=== PATIENT | male | born 1980 | race Hispanic/Latino ===

== ENCOUNTER 2017-08-17 17:52 | Emergency (ER) | payer BC, OTHER ==
[~2017-08-17] VITALS: Ht 188 cm; Wt 108.9 kg
[~2017-08-17 17:52] MED LIST: MOTRIN200 MG PO
--- OUTSIDE RECORDS SUMMARY | 2017-08-17 17:55 | XMS REPORT ---
Author Author [facility] Address Unknown Phone Unavailable Care Team Providers Care Physical Science Technician Name Role Phone ANNABELLE REJI Unavailable Unavailable Problems This patient has no known problems. Allergies, Adverse Reactions, Alerts This patient has no known allergies or adverse reactions. Medications This patient has no known medications. Results Test Description Test Time Test Comments Text Results Atomic Results Result Comments TISSUE EXAM 2017-04-28 13:26:00 Surgical Pathology Report Case: [id number] Authorizing Provider: Reji Ridley Collected: 04/21/2017 1608 Ordering Location: [facility] Day Surgery Received: 2017 1608 Pathologist: Luna Nunes MD Specimen: Biopsy, Liver, TRANSJUGULAR LIVER BIOPSY WITH PRESSURE MEASURMENTS LIVER, TRANSJUGULAR NEEDLE BIOPSIES- LIVER PARENCHYMA WITH NO SIGNIFICANT DIAGNOSTIC ALTERATIONS- SEE COMMENT Signing Pathologist Direct Phone Line: The liver biopsy shows minimal steatosis, involving about 1% of liver parenchyma, and there is mild perisinusoidal fibrosis. There is no significant portal fibrosis. [id number], [id number] splenomegalyTransjugular liver biopsyThe specimen is received in a formalin-filled container and labeled with the patient 's name and medical record number labeled "transjugular liver biopsy and consists of multiple espinoza-brown core biopsy ranging from 0.3 to 1.5 cm, submitted entirely A1. CG/pl Section shows multiple variably sized cores of liver parenchyma with greater than 10 portal tracts and is adequate for evaluation. The portal tracts are unremarkable with preserved bile ducts. No significant portal inflammation is noted. There is minimal focal steatosis involving 1% of liver parenchyma. No ballooning degeneration is seen. There is rare focal lobular inflammation with occasional acidophilic body. Iron stain shows rare focal 1+ staining in the hepatocytes. No hyaline globules are seen on PAS with diastase stain.Trichrome stain shows mild perisinusoidal fibrosis. No significant portal fibrosis is seen. Reticulin stain shows 1-2 cell thick hepatocyte trabeculae. Special stains: trichrome, reticulin, iron and PAS with diastase FLEX TRANSCATHETER BIOPSY 2017-04-21 17:17:00 Specify Organ:->unexplained splenomegalyReason for Exam:->other specified abnormal findings of blood chemistry FINAL REPORT HISTORY: Elevated liver function tests, splenomegaly PROCEDURE: Following informed written consent, the patient's right cervical region was prepped and draped in the usual sterile manner. 2% lidocaine was given locally for anesthesia. Additionally, the patient received 3 mg IV Versed and 150 mcg IV fentanyl in incremental doses for conscious sedation and pain control. Vital signs were monitored and remained stable. Conscious sedation and continuous patient monitoring were performed by the attending radiologist and a registered nurse for approximately 30 minutes during the procedure. Access was gained to the right internal jugular vein using ultrasound guidance a micropuncture needle. A Ricks wire was advanced through the micropuncture sheath and into the inferior vena cava. A 9 Austrian sheath was placed. The purpose catheter and wire were used to carefully select to perform a hepatic venogram. Biopsy sheath was advanced over the catheter and wire into the middle hepatic vein. A total of for 19-gauge core tissue samples were obtained from the hepatic parenchyma adjacent to the hepatic vein. Samples were submitted in formalin for pathologic evaluation. Repeat venography was performed following the biopsy. Catheter and sheath were then removed and hemostasis achieved without immediate complications. Patient was discharged from the department in stable condition. FINDINGS: Single sonographic image of the right jugular vein prior to the procedure demonstrates patent jugular vein. Normal compressibility of this vessel is seen without visible thrombus. Ultrasound image of the right internal jugular vein was obtained and archived on PACs. Hepatic venogram shows patent hepatic veins without venous anomalies. During the biopsy, the biopsy needle is noted in the hepatic parenchyma adjacent to the middle hepatic vein. Following the biopsy, repeat venography shows no evidence for contrast extravasation or hemorrhage. Hepatic Venous Pressures as follows: Wedged hepatic pressure: 14 mmHgHepatic venous pressure: 9 mmHgRight atrial pressure: 0 mmHg IMPRESSION: 1. Successful uncomplicated transjugular liver biopsy. A total of for 19-gauge core tissue samples were obtained via the middle hepatic vein. Hepatic venous pressures, as detailed above Fluoroscopy time: 3.3 minsEstimated dose reported as (Ka,r): 85 mGy Signed: Jeanette Berumen MDReport Verified Date/Time: 04/21/2017 17:17:33 Reading Location: [place] [id number] Angio Body Reading Room REHENSIVE METABOLIC PANEL 2017-04-21 07:25:00 TOTAL PROTEIN (BEAKER) (test jixz=886) 7.5 gm/dL 6.0-8.3 ALBUMIN (BEAKER) (test jqnv=0549) 4.3 g/dL 3.5-5.0 ALKALINE PHOSPHATASE (BEAKER) (test unls=655) 114 U/L 40-150 BILIRUBIN TOTAL (BEAKER) (test knvd=266) 0.5 mg/dL 0.2-1.2 SODIUM (BEAKER) (test nihv=218) 139 meq/L 136-145 POTASSIUM (BEAKER) (test ioca=628) 4.1 meq/L 3.5-5.1 CHLORIDE (BEAKER) (test xwrq=717) 107 meq/L 98-107 CO2 (BEAKER) (test ynmx=004) 24 meq/L 22-29 BLOOD UREA NITROGEN (BEAKER) (test zgvf=406) 11 mg/dL 7-21 CREATININE (BEAKER) (test qjpp=574) 1.00 mg/dL 0.57-1.25 GLUCOSE RANDOM (BEAKER) (test iuxm=470) 101 mg/dL 70-105 CALCIUM (BEAKER) (test fuqx=938) 9.2 mg/dL 8.4-10.2 AST (SGOT) (BEAKER) (test zewc=167) 35 U/L 5-34 ALT (SGPT) (BEAKER) (test kfey=515) 60 U/L 6-55 EGFR (BEAKER) (test bijh=6354) 85 mL/min/1.73 sq m ESTIMATED GFR IS NOT ACCURATE CREATININE CLEARANCE IN PREDICTING GLOMERULAR FILTRATION RATE. ESTIMATED GFR IS NOT APPLICABLE FOR DIALYSIS PATIENTS. [id number] 07:14:00* Test Item Value Reference Range Comments PROTIME (BEAKER) (test oute=943) 13.8 seconds 11.7-14.7 INR (BEAKER) (test mogd=377) 1.1 <=5.9 PARTIAL THROMBOPLASTIN TIME (BEAKER) (test kdoh=708) 31.1 seconds 22.5-36.0 RECOMMENDED COUMADIN/WARFARIN INR THERAPY RANGESSTANDARD DOSE: 2.0 - 3.0 Includes: PROPHYLAXIS for venous thrombosis, systemic embolization; TREATMENT for venous thrombosis and/or pulmonary embolus.HIGH RISK: Target INR is 2.5-3.5 for patients with mechanical heart valves.PLATELET [id number] 07:09:00* Test Item Value Reference Range Comments PLATELET COUNT (ANGELAAKER) (test jjpm=063) 143 K/CU MM 150-450
--- OUTSIDE RECORDS SUMMARY | 2017-08-17 17:55 | XMS REPORT | Clinical Summary ---
Author [facility] Address Unknown Phone Unavailable Care Team Providers Care Drive In Teller Name Role Phone PCP Unavailable Allergies No Known Allergies Current Medications No known medications Active Problems Not on file Encounters Date Type Specialty Care Team Description 04/21/2017 Orders Only General Surgery History of liver biopsy (Primary Dx) 04/21/2017 [facility] Inderjit Ridley Splenomegaly;Other Encounter specified abnormal findings of blood chemistry 04/21/2017 Ancillary Lab Inderjit Ridley Orders 04/15/2017 Outside Orders Central Scheduling Inderjit Ridley Splenomegaly (Primary Dx);Other specified abnormal findings of blood chemistry 04/14/2017 Outside Orders Central Scheduling Inderjit Ridley after 08/16/2016 Social History Tobacco Use Types Packs/Day Years Used Date Light Tobacco Smoker 0.25 Smokeless Tobacco: Current User Tobacco Cessation: Ready to Quit: Yes; Counseling Given: Yes Alcohol Use Drinks/Week oz/Week Comments No Sex Assigned at Date Recorded Not on file Last Filed Vital Signs Vital Sign Reading Time Taken Blood Pressure 119/64 04/21/2017 5:40 PM POLICE SUPERINTENDENT Pulse 58 04/21/2017 5:40 PM POLICE SUPERINTENDENT Temperature 37.2 C (98.9 F) 04/21/2017 9:09 AM POLICE SUPERINTENDENT Respiratory Rate 18 04/21/2017 5:40 PM POLICE SUPERINTENDENT Oxygen Saturation 98% 04/21/2017 1:54 PM POLICE SUPERINTENDENT Inhaled Oxygen - - Concentration Weight 113.9 kg (251 lb) 04/21/2017 6:36 AM POLICE SUPERINTENDENT Height 188 cm (6' 2") 04/21/2017 6:36 AM POLICE SUPERINTENDENT Body Mass Index 32.23 04/21/2017 6:36 AM POLICE SUPERINTENDENT Plan of Treatment Not on file Results * Tissue Exam (04/21/2017 4:08 PM) Component Value Ref Range Case Report Surgical Pathology Report Case: [id number] Authorizing Provider: Inderjit Ridley Collected: 04/21/2017 1608 Ordering Location: [facility] Day Surgery Received: 04/21/2017 1608 Pathologist: Luna Nunes MD Specimen: Biopsy, Liver, TRANSJUGULAR LIVER BIOPSY WITH PRESSURE MEASURMENTS DIAGNOSIS LIVER, TRANSJUGULAR NEEDLE BIOPSIES - LIVER PARENCHYMA WITH NO SIGNIFICANT DIAGNOSTIC ALTERATIONS - SEE COMMENT Signing Pathologist Direct Phone Line: [phone] COMMENT The liver biopsy shows minimal steatosis, involving about 1% of liver parenchyma, and there is mild perisinusoidal fibrosis. There is no significant portal fibrosis. CPT Code(s) 26144, 56477 X4 CLINICAL HISTORY Unexplained splenomegaly SPECIMEN SOURCE Transjugular liver biopsy GROSS DESCRIPTION The specimen is received in a formalin-filled container and labeled with the patient's name and medical record number labeled "transjugular liver biopsy and consists of multiple espinoza-brown core biopsy ranging from 0.3 to 1.5 cm, submitted entirely A1. CG/pl MICROSCOPIC DESCRIPTION Section shows multiple variably sized cores of [...] trichrome, reticulin, iron and PAS with diastase Specimen Performing Laboratory Tissue - Biopsy, [place] [address] * IR Transcatheter Biospy of Kidney/Liver (04/21/2017 1:15 PM) Specimen Performing Laboratory GE RIS Narrative FINAL REPORT HISTORY: Elevated liver function tests, [...] into the inferior vena cava. A 9 Malian sheath was placed. The purpose catheter and [...] Pressures as follows: Wedged hepatic pressure: 14 mmHg Hepatic venous pressure: 9 mmHg Right atrial pressure: 0 mmHg IMPRESSION: 1. Successful uncomplicated transjugular liver biopsy. A total of for 19-gauge core tissue samples were obtained via the middle hepatic vein. Hepatic venous pressures, as detailed above Fluoroscopy time: 3.3 mins Estimated dose reported as (Ka,r): 85 mGy Signed: Jeanette Berumen MD Report Verified Date/Time:04/21/2017 17:17:33 Reading Location: [place] [address] Angio Body Reading Room Procedure Note Interface, External Ris In - 04/30/2017 10:32 PM POLICE SUPERINTENDENT FINAL REPORT HISTORY: Elevated liver function tests, [...] into the inferior vena cava. A 9 Malian sheath was placed. The purpose catheter and [...] Pressures as follows: Wedged hepatic pressure: 14 mmHg Hepatic venous pressure: 9 mmHg Right atrial pressure: 0 mmHg IMPRESSION: 1. Successful uncomplicated transjugular liver biopsy. A total of for 19-gauge core tissue samples were obtained via the middle hepatic vein. Hepatic venous pressures, as detailed above Fluoroscopy time: 3.3 mins Estimated dose reported as (Ka,r): 85 mGy Signed: Jeanette Berumen MD Report Verified Date/Time: 04/21/2017 17:17:33 Reading Location: [place] [address] Angio Body Reading Room * PT/aPTT (04/21/2017 6:54 AM) Component Value Ref Range Protime 13.8 11.7 - 14.7 seconds INR 1.1 <=5.9 PTT 31.1 22.5 - 36.0 seconds Specimen Performing Laboratory Blood [facility] [address] [address] Narrative RECOMMENDED COUMADIN/WARFARIN INR THERAPY RANGES STANDARD DOSE: 2.0 - 3.0 Includes: PROPHYLAXIS for venous thrombosis, systemic embolization; TREATMENT for venous thrombosis and/or pulmonary embolus. HIGH RISK: Target INR is 2.5-3.5 for patients with mechanical heart valves. * Platelet count (04/21/2017 6:54 AM) Component Value Ref Range Platelets 143 (L) 150 - 450 K/CU MM Specimen Performing Laboratory Blood [address] [address] * Comprehensive metabolic panel (04/21/2017 6:54 AM) Component Value Ref Range Protein, Total 7.5 6.0 - 8.3 gm/dL Albumin 4.3 3.5 - 5.0 g/dL Alkaline Phosphatase 114 40 - 150 U/L Total Bilirubin 0.5 0.2 - 1.2 mg/dL Sodium 139 136 - 145 meq/L Potassium 4.1 3.5 - 5.1 meq/L Chloride 107 98 - 107 meq/L CO2 24 22 - 29 meq/L BUN 11 7 - 21 mg/dL Creatinine 1.00 0.57 - 1.25 mg/dL Glucose 101 70 - 105 mg/dL Calcium 9.2 8.4 - 10.2 mg/dL AST 35 (H) 5 - 34 U/L ALT 60 (H) 6 - 55 U/L EGFR 85Comment: ESTIMATED GFR IS NOT ACCURATE mL/min/1.73 sq m CREATININE CLEARANCE IN PREDICTING GLOMERULAR FILTRATION RATE. ESTIMATED GFR IS NOT APPLICABLE FOR DIALYSIS PATIENTS. Specimen Performing Laboratory Blood [address] [address] after 08/16/2016
[2017-08-17] MEDS ORDERED: MORPHINE SULFATE 4 MG/ML SYR IV PRN (19:45)
[2017-08-17 20:21] VITALS: BP 136/76
== END 2017-08-17 20:25 | disposition home or self-care (01) ==
LOC: FSED 17:52
DX: R10.12 Left upper quadrant pain (principal)
CPT/HCPCS: 74177; 80053; 81003; 85025; 85610; 99284

== ENCOUNTER 2018-07-30 23:39 | Emergency (ER) | payer OTHER ==
[~2018-07-30] VITALS: Ht 190.5 cm; Wt 108.9 kg
--- OUTSIDE RECORDS SUMMARY | 2018-07-30 23:45 | XMS REPORT | Clinical Summary ---
Author Author [facility] Organization [facility] Address Unknown Phone Unavailable Care Team Providers Care Extractor Machine Operator Name Role Phone Drake Pastrana MD PCP Allergies No Known Allergies Medications No known medications Active Problems Not on file Social History Date Tobacco Use Types Packs/Day Years Used Light Tobacco Smoker 0.25 Smokeless Tobacco: Current User Tobacco Cessation: Ready to Quit: Yes; Counseling Given: Yes Alcohol Use Drinks/Week oz/Week Comments No Sex Assigned at Date Recorded Not on file Industry Job Start Date Occupation Not on file Not on file Not on file Travel End Travel History Travel Start No recent travel history available. Last Filed Vital Signs Not on file Plan of Treatment Not on file Results Not on fileafter 07/29/2017 Insurance Payer Benefit Subscriber ID Type Phone Address Plan / Group [employer] - MGD CARE CIG[employer] xxxxxxxxxxx HMO/POS HMO/POS/OP EN ACCESS Advance Directives For more information, please contact: [facility] [address] [place] [address] Date Inactivated Comments Code Status Date Activated 04/21/2017 10:05 PM Full Code 04/21/2017 1:51 PM This code status was determined by: Patient
--- OUTSIDE RECORDS SUMMARY | 2018-07-30 23:45 | XMS REPORT | Continuity of Care Document ---
Author Author [facility] Interface Address Unknown Phone Unavailable Problems Problem Status Onset Date Classification Date Reported Comments Source INCARCERATED HERNIA Active 11/01/2015 [facility] EARLY SBO Active 11/01/2015 [facility] ABD PAIN; HERNIA Active 12/27/2013 [facility] Pain Active Problem 11/06/2015 [facility] Surgery Active Problem 11/06/2015 [facility] Urinary retention Active Problem 11/06/2015 [facility] Ventral hernia Active Problem 11/06/2015 [facility] History of abdominal hernia Resolved Problem 11/06/2015 [facility] BI INGUINAL HERNIA, W OBST, W/O GANGRENE Active [facility] Medications Medication Details Route Status Patient Instructions Ordering Provider Order Date Source Acetaminophen 325 MG / Hydrocodone Bitartrate 5 MG Oral Tablet [[place] 5/325] See Instructions, take 1-2 tabls every 4 to 6 hours as needed for pain, # 30 tab, 0 Refill(s) Active 11/03/2015 [facility] Acetaminophen 325 MG / Hydrocodone Bitartrate 5 MG Oral Tablet [[place] 5/325] 1 tab, Route: PO, Drug Form: TAB, Dosing Weight 116.818, kg, Q6H, PRN Pain Score 7-10, Start date: 11/03/15 13:45:00 CDT, Duration: 30 day, Stop date: 12/03/15 13:44:00 CDTNotes: (Same as: [place] 325/5) Do not exceed 4gm/day of acetaminophen. Inactive 11/03/2015 [facility] Flomax 0.4 mg, 1 cap, Route: PO, Drug form: CAP, After Dinner, Dosing Weight 116.818, kg, Start date: 11/02/15 17:00:00 CDT, Duration: 30 day, Stop date: 12/01/15 17:00:00 CDTNotes: (Same As: Flomax) "Do Not Crush" No Longer Active 11/02/2015 [facility] pneumococcal capsular polysaccharide type 1 vaccine / pneumococcal capsular polysaccharide type 10A vaccine / pneumococcal capsular polysaccharide type 11A vaccine / pneumococcal capsular polysaccharide type 12F vaccine / pneumococcal capsular polysacchar 0.5 mL, Route: IM, Drug Form: INJ, Daily, Start date: 11/02/15 9:00:00 CDT, Duration: 1 doses or times, Stop date: 11/02/15 9:00:00 CDTNotes: (Same as: Pneumovax 23) Refrigerate Inactive 11/02/2015 [facility] ceFAZolin (SCIP) + sodium chloride 0.9% INJ 100 mL 1 gm, Route: IVPB, Q8H, Dosing Weight 116.818, kg, Start date: 11/02/15 0:00:00 CDT, Duration: 1 doses or times, Stop date: 11/02/15 0:00:00 CDTNotes: (Same As: David Gloria) MEDICATION WASTE Product Size: 1000 mg Product Wasted: ___ mg Inactive 11/02/2015 [facility] Famotidine 20 mg, 1 tab, Route: PO, Drug form: TAB, Q12H, Dosing Weight 116.818, kg, Start date: 11/01/15 21:00:00 CDT, Duration: 30 day, Stop date: 12/01/15 9:00:00 CDTNotes: (Same as: Pepcid) No Longer Active 11/02/2015 [facility] Ofirmev 1,000 mg, 100 mL, Route: IV, Drug form: INJ, Q6H, Dosing Weight 116.818, kg, for > or=50 kg, Start date: 11/01/15 18:00:00 CDT, Duration: 1 day, Stop date: 11/02/15 12:00:00 CDTNotes: Infuse over 15 minutes Do not exceed 4gm/day of acetaminophen MEDICATION WASTE Product Size: 1000 mg Product Wasted: ___ mg No Longer Active 11/01/2015 [facility] Ondansetron 4 mg, Route: IVP, ONCE, Dosing Weight 116.818, kg, PRN Nausea & Vomiting, Start date: 11/01/15 17:41:00 CDT Inactive 11/01/2015 [facility] Acetaminophen 1,000 mg, Route: PO, Drug form: TAB, ONCE, Dosing Weight 116.818, kg, PRN Pain Score 1-3, Start date: 11/01/15 17:41:00 CDT, Duration: 1 doses or times, Stop date: Limited # of times Inactive 11/01/2015 [facility] Flumazenil 0.2 mg, Route: IVP, PRN, Dosing Weight 116.818, kg, PRN Benzodiazepine Reversal, Initial dose, Start date: 11/01/15 17:41:00 CDT, Duration: 30 day, Stop date: 12/01/15 17:40:00 CDT Inactive 11/01/2015 [facility] Naloxone 0.4 mg, Route: IVP, Q2MIN, Dosing Weight 116.818, kg, PRN Narcotic Reversal, Start date: 11/01/15 17:41:00 CDT, Duration: 8 doses or times, Stop date: Limited # of times Inactive 11/01/2015 [facility] Fentanyl 50 microgram, Route: IVP, Q5Min, Dosing Weight 116.818, kg, PRN Pain Score 7-10, Start date: 11/01/15 17:41:00 CDT, Duration: 2 doses or times, Stop date: Limited # of times Inactive 11/01/2015 [facility] Hydromorphone 0.5 mg, Route: IVP, Q5Min, Dosing Weight 116.818, kg, PRN Pain Score 7-10, Start date: 11/01/15 17:41:00 CDT, Duration: 4 doses or times, Stop date: Limited # of times Inactive 11/01/2015 [facility] Oxycodone 10 mg, Route: PO, Drug form: TAB, Q4H, Dosing Weight 116.818, kg, PRN Pain Score 7-10, Start date: 11/01/15 17:41:00 CDT, Duration: 30 day, Stop date: 12/01/15 17:40:00 CDT Inactive 11/01/2015 [facility] Meperidine 12.5 mg, Route: IVP, Q30Min, Dosing Weight 116.818, kg, PRN Other -See Comment, For shivering, Start date: 11/01/15 17:41:00 CDT, Duration: 2 doses or times, Stop date: Limited # of times Inactive 11/01/2015 [facility] hydromorphone (ANES) Route: IV, Drug form: INJ, ONCE, Stop date: 11/01/15 17:27:00 CDT Inactive 11/01/2015 [facility] neostigmine (ANES) Route: IV, Drug form: INJ, ONCE, Stop date: 11/01/15 17:27:00 CDT Inactive 11/01/2015 [facility] glycopyrrolate (ANES) Route: IV, Drug form: INJ, ONCE, Stop date: 11/01/15 17:27:00 CDT Inactive 11/01/2015 [facility] Ondansetron 4 mg, 2 mL, Route: IVP, Drug form: INJ, Q6H, Dosing Weight 116.818, kg, PRN Nausea & Vomiting, Start date: 11/01/15 17:25:00 CDT, Duration: 30 day, Stop date: 12/01/15 17:24:00 CDTNotes: (Same as: Zofran) MEDICATION WASTE Product Size: 4 mg Product Wasted: ___ mg No Longer Active 11/01/2015 [facility] Morphine 2 mg, 1 mL, Route: IVP, Drug form: INJ, Q3H, Dosing Weight 116.818, kg, PRN Pain Score 4-6, Start date: 11/01/15 17:25:00 CDT, Duration: 30 day, Stop date: 12/01/15 17:24:00 CDTNotes: (Same as:MORPhine Sulfate) No Longer Active 11/01/2015 [facility] Acetaminophen 325 MG / Hydrocodone Bitartrate 5 MG Oral Tablet 1 tab, Route: PO, Drug Form: TAB, Dosing Weight 116.818, kg, Q4H, PRN Pain Score 1-3, Start date: 11/01/15 17:25:00 CDT, Duration: 30 day, Stop date: 12/01/15 17:24:00 CDTNotes: (Same as: [place] 325/5) Do not exceed 4gm/day of acetaminophen. No Longer Active 11/01/2015 [facility] lidocaine (ANES) Route: IV, Drug form: INJ, ONCE, Stop date: 11/01/15 16:38:00 CDT Inactive 11/01/2015 [facility] midazolam (ANES) Route: IV, Drug form: SOLN, ONCE, Stop date: 11/01/15 16:38:00 CDT Inactive 11/01/2015 [facility] ondansetron (ANES) Route: IV, Drug form: INJ, ONCE, Stop date: 11/01/15 16:38:00 CDT Inactive 11/01/2015 [facility] acetaminophen (ANES) Route: IV, Drug form: INJ, ONCE, Stop date: 11/01/15 16:38:00 CDT Inactive 11/01/2015 [facility] rocuronium (ANES) Route: IV, Drug form: INJ, ONCE, Stop date: 11/01/15 16:38:00 CDT Inactive 11/01/2015 [facility] cefOXitin (ANES) Route: IV, Drug form: INJ, ONCE, Stop date: 11/01/15 16:38:00 CDT Inactive 11/01/2015 [facility] fentaNYL (ANES) Route: IV, Drug form: INJ, ONCE, Stop date: 11/01/15 16:38:00 CDT Inactive 11/01/2015 [facility] propofol (ANES) Route: IV, Drug form: INJ, ONCE, Stop date: 11/01/15 16:38:00 CDT Inactive 11/01/2015 [facility] LR 1000 mL INJ (ANES) Route: IV, Total Volume: 1,000, Start date: 11/01/15 15:48:00 CDT, Stop date: 11/01/15 16:48:00 CDT Inactive 11/01/2015 [facility] Calcium Chloride 0.0014 MEQ/ML / Potassium Chloride 0.004 MEQ/ML / Sodium Chloride 0.103 MEQ/ML / Sodium Lactate 0.028 MEQ/ML Injectable Solution 1,000 mL, Rate: 25 ml/hr, Infuse over: 40 hr, Route: IV, Dosing Weight 116.818 kg, Total Volume: 1,000, Start date: 11/01/15 15:40:00 CDT, Duration: 30 day, Stop date: 12/01/15 15:39:00 CDT Inactive 11/01/2015 [facility] Cefoxitin 2 gm, Route: IVPB, ONCALL, Dosing Weight 116.818, kg, Start date: 11/01/15 15:00:00 CDT, Duration: 30 day, Stop date: 12/01/15 14:59:00 CDTNotes: (Same As: Mefoxin) MEDICATION WASTE Product Size: 2000 mg Product Wasted: ___ mg No Longer Active 11/01/2015 [facility] Acetaminophen 325 MG / Hydrocodone Bitartrate 5 MG Oral Tablet [[place] 5/325] 1 tab, PO, Q6H, PRN Pain Score 7-10, 0 Refill(s) No Longer Active 11/01/2015 [facility] Sodium Chloride 0.154 MEQ/ML Injectable Solution 1,000 mL, Rate: 125 ml/hr, Infuse over: 8 hr, Route: IV, Dosing Weight 108.182 kg, Total Volume: 1,000, Start date: 11/01/15 12:38:00 CDT, Duration: 30 day, Stop date: 12/01/15 12:37:00 CDT No Longer Active 11/01/2015 [facility] Ondansetron 4 mg, 2 mL, Route: IVP, Drug form: INJ, Q6H, Dosing Weight 108.182, kg, PRN Nausea & Vomiting, Start date: 11/01/15 12:38:00 CDT, Duration: 30 day, Stop date: 12/01/15 12:37:00 CDTNotes: (Same as: Zofran) MEDICATION WASTE Product Size: 4 mg Product Wasted: ___ mg Inactive 11/01/2015 [facility] Saline Flush 0.9% 10 ml, Route: IVP, Drug Form: INJ, Dosing Weight 108.182, kg, PRN, PRN Line Flush, Start date: 11/01/15 12:38:00 CDT, Duration: 30 day, Stop date: 12/01/15 12:37:00 CDTNotes: Same as: BD Posiflush Sterile No Longer Active 11/01/2015 [facility] Dilaudid 0.5 mg, 0.5 mL, Route: IVP, Drug form: INJ, Q3H, Dosing Weight 108.182, kg, PRN Pain Score 7-10, Start date: 11/01/15 12:38:00 CDT, Duration: 30 day, Stop date: 12/01/15 12:37:00 CDT No Longer Active 11/01/2015 [facility] Allergies, Adverse Reactions, Alerts Substance Category Reaction Severity Reaction type Status Date Reported Comments Source Immunizations Immunization Date Given Site Status Last Updated Comments Source pneumococcal 23-valent vaccine 11/02/2015 Left Deltoid completed Hernandez [facility] Results Order Name Results Value Reference Range Date Interpretation Comments Source Abdomen 2 views DX Abdomen 2 views DX Patient Name: ERUM DE LEON : 1980; Age: 35 years y/o Male MR: [id number] Study: Abdomen 2 views DX 11/02/2015 8:29 AM CDT Ordering Physician: Peewee Coon MD Clinical Indication: Bowel Obstruction; Comparison: 12/29/2013 CT scan of the abdomen and pelvis Discussion: Right paramedian surgical skin marshal. The spleen remains enlarged. Residual contrast is seen in the colon. Several mildly dilated small bowel loops without accompanying air-fluid levels are seen in the left half of the abdomen. No bony abnormality, mass, abnormal calcifications, or pneumoperitoneum.. Bibasilar subsegmental atelectasis in the visualized lung parenchyma. IMPRESSION: 1. Mild to moderate splenomegaly. 2. Mildly dilated small bowel loops more suspicious for ileus than obstruction. Progress KUBs are recommended. SL: [id number] 11/02/2015 - - Read by: Raz Gasca MD Dictated Date/time: 11/02/15 09:31 Electronically Signed by: Raz Gasca MD 11/02/15 09:53 FINAL REPORT [facility] CHEM PANEL eGFR 102 mL/min/1.73m2 11/02/2015 Result Comment: The eGFR is calculated using the CKD-EPI formula. In most young, healthy individuals the eGFR will be >90 mL/min/1.73m2. The eGFR declines with age. An eGFR of 60-89 may be normal in some populations, particularly the elderly, for whom the CKD-EPI formula has not been extensively validated. Use of the eGFR is not recommended in the following populations: Individuals with unstable creatinine concentrations, including patients and those with serious co-morbid conditions. Patients with extremes in muscle mass or diet. The data above are obtained from the National Kidney Disease Education Program (NKDEP) which additionally recommends that when the eGFR is used in patients with extremes of body mass index for purposes of drug dosing, the eGFR should be multiplied by the estimated BMI. [facility] CHEM PANEL Calcium Lvl 8.2 mg/dL 8.5 - 10.5 11/02/2015 [facility] CHEM PANEL CO2 27 meq/L 24 - 32 11/02/2015 [facility] CHEM PANEL Potassium Lvl 4.0 meq/L 3.5 - 5.1 11/02/2015 [facility] CHEM PANEL Sodium Lvl 139 meq/L 135 - 145 11/02/2015 [facility] CHEM PANEL Chloride Lvl 106 meq/L 95 - 109 11/02/2015 [facility] CHEM PANEL Alk Phos 95 unit/L 39 - 136 11/02/2015 [facility] CHEM PANEL AST 24 unit/L 0 - 37 11/02/2015 [facility] CHEM PANEL ALT 46 unit/L 0 - 65 11/02/2015 [facility] CHEM PANEL Albumin Lvl 3.6 g/dL 3.5 - 5.0 11/02/2015 [facility] CHEM PANEL Total Protein 6.7 g/dL 6.4 - 8.4 11/02/2015 [facility] CHEM PANEL Bili Total 0.6 mg/dL 0.2 - 1.3 11/02/2015 [facility] CHEM PANEL Glucose Lvl 79 mg/dL 70 - 99 11/02/2015 [facility] CHEM PANEL Creatinine Lvl 0.97 mg/dL 0.50 - 1.40 11/02/2015 [facility] CHEM PANEL BUN 8 mg/dL 7 - 22 11/02/2015 [facility] CHEM PANEL A/G Ratio 1.2 0.7 - 1.6 11/02/2015 [facility] CHEM PANEL Globulin 3.1 g/dL 2.7 - 4.2 11/02/2015 [facility] CHEM PANEL B/C Ratio 8 6 - 25 11/02/2015 [facility] CHEM PANEL AGAP 10.0 meq/L 10.0 - 20.0 11/02/2015 [facility] HEMATOLOGY MCHC 34.2 g/dL 32.0 - 36.0 11/02/2015 [facility] HEMATOLOGY RDW 13.3 % 11.5 - 14.5 11/02/2015 [facility] HEMATOLOGY Platelet 118 K/CMM 133 - 450 11/02/2015 [facility] HEMATOLOGY MPV 8.2 fL 7.4 - 10.4 11/02/2015 [facility] HEMATOLOGY WBC 5.1 K/CMM 3.7 - 10.4 11/02/2015 [facility] HEMATOLOGY MCV 83.0 fL 80.0 - 94.0 11/02/2015 [facility] HEMATOLOGY MCH 28.4 pg 27.0 - 31.0 11/02/2015 [facility] Hgb 15.1 g/dL 14.0 - 18.0 11/02/2015 [facility] RBC 5.33 M/CMM 4.70 - 6.10 11/02/2015 [facility] Hct 44.3 % 42.0 - 54.0 11/02/2015 [facility] Monocytes 6.8 % 2.0 - 12.0 11/02/2015 [facility] Basophils 0.6 % 0.0 - 1.0 11/02/2015 [facility] Segs-Bands # 3.7 K/CMM 1.5 - 8.1 11/02/2015 [facility] Lymphocytes # 0.9 K/CMM 1.0 - 5.5 11/02/2015 [facility] HEMATOLOGY Eosinophils 1.9 % 0.0 - 4.0 11/02/2015 [facility] HEMATOLOGY Segs 72.4 % 45.0 - 75.0 11/02/2015 [facility] Lymphocytes 18.3 % 20.0 - 40.0 11/02/2015 [facility] Monocytes # 0.3 K/CMM 0.0 - 0.8 11/02/2015 [facility] Eosinophils # 0.1 K/CMM 0.0 - 0.5 11/02/2015 [facility] CHEM PANEL Phosphorus 3.2 mg/dL 2.5 - 4.5 11/01/2015 [facility] CHEM PANEL Magnesium Lvl 1.9 mg/dL 1.8 - 2.4 11/01/2015 [facility] CHEM PANEL eGFR 105 mL/min/1.73m2 11/01/2015 Result Comment: The eGFR is calculated using the CKD-EPI formula. In most young, healthy individuals the eGFR will be >90 mL/min/1.73m2. The eGFR declines with age. An eGFR of 60-89 may be normal in some populations, particularly the elderly, for whom the CKD-EPI formula has not been extensively validated. Use of the eGFR is not recommended in the following populations: Individuals with unstable creatinine concentrations, including patients and those with serious co-morbid conditions. Patients with extremes in muscle mass or diet. The data above are obtained from the National Kidney Disease Education Program (NKDEP) which additionally recommends that when the eGFR is used in patients with extremes of body mass index for purposes of drug dosing, the eGFR should be multiplied by the estimated BMI. [facility] CHEM PANEL Glucose Lvl 81 mg/dL 70 - 99 11/01/2015 [facility] CHEM PANEL BUN 10 mg/dL 7 - 22 11/01/2015 [facility] CHEM PANEL Creatinine Lvl 0.94 mg/dL 0.50 - 1.40 11/01/2015 [facility] CHEM PANEL Sodium Lvl 139 meq/L 135 - 145 11/01/2015 [facility] CHEM PANEL Potassium Lvl 4.1 meq/L 3.5 - 5.1 11/01/2015 [facility] CHEM PANEL Chloride Lvl 104 meq/L 95 - 109 11/01/2015 [facility] CHEM PANEL CO2 25 meq/L 24 - 32 11/01/2015 [facility] CHEM PANEL Bili Total 0.4 mg/dL 0.2 - 1.3 11/01/2015 [facility] CHEM PANEL ALT 52 unit/L 0 - 65 11/01/2015 [facility] CHEM PANEL AST 25 unit/L 0 - 37 11/01/2015 [facility] CHEM PANEL Alk Phos 94 unit/L 39 - 136 11/01/2015 [facility] CHEM PANEL Calcium Lvl 8.1 mg/dL 8.5 - 10.5 11/01/2015 [facility] CHEM PANEL Albumin Lvl 3.9 g/dL 3.5 - 5.0 11/01/2015 [facility] CHEM PANEL Total Protein 6.7 g/dL 6.4 - 8.4 11/01/2015 [facility] CHEM PANEL A/G Ratio 1.4 0.7 - 1.6 11/01/2015 [facility] CHEM PANEL Globulin 2.8 g/dL 2.7 - 4.2 11/01/2015 [facility] CHEM PANEL B/C Ratio 11 6 - 25 11/01/2015 [facility] CHEM PANEL AGAP 14.1 meq/L 10.0 - 20.0 11/01/2015 [facility] CHEM PANEL Lipase Lvl 78 unit/L 73 - 393 11/01/2015 [facility] HEMATOLOGY Eosinophils 1.3 % 0.0 - 4.0 11/01/2015 [facility] HEMATOLOGY Monocytes 5.2 % 2.0 - 12.0 11/01/2015 [facility] HEMATOLOGY Lymphocytes 18.6 % 20.0 - 40.0 11/01/2015 [facility] HEMATOLOGY Segs 74.3 % 45.0 - 75.0 11/01/2015 [facility] HEMATOLOGY Eosinophils # 0.1 K/CMM 0.0 - 0.5 11/01/2015 [facility] Monocytes # 0.2 K/CMM 0.0 - 0.8 11/01/2015 [facility] Lymphocytes # 0.8 K/CMM 1.0 - 5.5 11/01/2015 [facility] Segs-Bands # 3.4 K/CMM 1.5 - 8.1 11/01/2015 [facility] Basophils 0.6 % 0.0 - 1.0 11/01/2015 [facility] MCH 28.2 pg 27.0 - 31.0 11/01/2015 [facility] MCV 81.9 fL 80.0 - 94.0 11/01/2015 [facility] Hct 43.6 % 42.0 - 54.0 11/01/2015 [facility] Hgb 15.0 g/dL 14.0 - 18.0 11/01/2015 [facility] RBC 5.33 M/CMM 4.70 - 6.10 11/01/2015 [facility] MPV 8.1 fL 7.4 - 10.4 11/01/2015 [facility] Platelet 131 K/CMM 133 - 450 11/01/2015 [facility] RDW 13.5 % 11.5 - 14.5 11/01/2015 [facility] MCHC 34.5 g/dL 32.0 - 36.0 11/01/2015 [facility] WBC 4.6 K/CMM 3.7 - 10.4 11/01/2015 [facility] Abdomen/Pelvis w IV contrast CT Abdomen/Pelvis w IV contrast CT EXAMINATION: CT of the abdomen and pelvis with contrast HISTORY: abd pain/hernia COMPARISON: None. DLP: [id number] TECHNIQUE: Multiple transaxial images through the abdomen and pelvis were acquired following administration of intravenous contrast material. Oral contrast was administered. Multiplanar reformatted images were performed. FINDINGS: The lung bases are clear bilaterally. The spleen is enlarged. The liver, gallbladder, pancreas, adrenal glands, and kidneys are unremarkable. There is no intrahepatic or extrahepatic biliary duct dilatation. The bladder and prostate are unremarkable. The visualized hollow viscera and appendix are without focal abnormality. No intraperitoneal free air, free fluid, or pathologic adenopathy is seen. There is a small ventral hernia above the level of the umbilicus with neck measuring 2.6 cm transversely and 5.9 cm craniocaudally, containing small amount of fat. IMPRESSION: 1. Small fat containing ventral hernia above the level of the umbilicus with neck measuring 2.6 cm transversely and 5.9 cm craniocaudally. 2. Splenomegaly. SL: 16 12/29/2013 - - Read by: Raz May MD Dictated Date/time: 12/30/13 07:17 Electronically Signed by: Raz May MD 12/30/13 07:21 FINAL REPORT [facility] Vital Signs Vital Sign Value Date Comments Source Respitory Rate 16 11/03/2015 [facility] Systolic (mm Hg) 136 11/03/2015 [facility] Diastolic (mm Hg) 83 11/03/2015 [facility] Heart Rate 70 11/03/2015 [facility] Temperature Oral (F) 98.8 F 11/03/2015 [facility] Heart Rate 71 11/03/2015 [facility] Systolic (mm Hg) 139 11/03/2015 [facility] Diastolic (mm Hg) 86 11/03/2015 [facility] Temperature Oral (F) 98.6 F 11/03/2015 [facility] Respitory Rate 18 11/03/2015 [facility] Heart Rate 79 11/03/2015 [facility] Systolic (mm Hg) 128 11/03/2015 [facility] Diastolic (mm Hg) 74 11/03/2015 [facility] Temperature Oral (F) 98.7 F 11/03/2015 [facility] Respitory Rate 18 11/03/2015 [facility] Height 187.96 cm 11/01/2015 [facility] Weight 116.818 11/01/2015 [facility] BMI Calculated 33.07 11/01/2015 [facility] Encounters Location Location Details Encounter Type Encounter Number Reason For Visit Attending Provider ADM Date DC Date Status Source [facility] Outpatient [id number] Peewee Coon 12/29/2013 12/30/2013 [facility] Inpatient [id number] Braden Andrade Jr 11/02/2015 11/03/2015 [facility] Procedures Procedure Code Date Perfomer Comments Source Ankle fusion [id number] [facility] Repair of recurrent umbilical hernia [id number] [facility]
--- OUTSIDE RECORDS SUMMARY | 2018-07-30 23:46 | XMS REPORT | Summary of Care ---
Author Author [facility] Organization [facility] Address Unknown Phone Unavailable Encounter CT Hutton(MONI) [id number] Date(s): 11/02/15 - 11/03/15 [facility] [address] [place] [address]- Discharge Disposition: Home or Self Care Attending Physician: Braden Laguerre MD Admitting Physician: Braden Laguerre MD Vital Signs 1 2 3 Most recent to oldest [Reference Range]: 187.96 cm (11/01/15 12:46 PM) Height 98.8 DegF (11/03/15 12:08 PM) 98.6 DegF (11/03/15 8:12 AM) 98.7 DegF (11/02/15 11:37 PM) Temperature Oral [96.4-99.1 DegF] 136/83 mmHg (11/03/15 12:08 PM) 139/86 mmHg (11/03/15 8:12 AM) 128/74 mmHg (11/02/15 11:37 PM) Blood Pressure [90-140/60-90 mmHg] 16 BRMIN (11/03/15 12:08 PM) 18 BRMIN (11/03/15 7:25 AM) 18 BRMIN (11/02/15 8:20 PM) Respiratory Rate [14-20 BRMIN] 70 bpm (11/03/15 12:08 PM) 71 bpm (11/03/15 8:12 AM) 79 bpm (11/02/15 11:37 PM) Peripheral Pulse Rate [60-100 bpm] 116.818 kg (11/01/15 12:46 PM) Weight 33.07 m2 (11/01/15 12:46 PM) Body Mass Index Problem List Condition Effective Dates Status Health Status Informant History of abdominal Resolved hernia(Confirmed) Pain(Confirmed) Active Surgery(Confirmed) Active Urinary Active retention(Confirmed) Ventral Active hernia(Confirmed) Allergies, Adverse Reactions, Alerts Substance Reaction Severity Status NKDA Active Medications acetaminophen (ANES) Route: IV, Drug form: INJ, ONCE, Stop date: 11/01/15 16:38:00 CDT Start Date: 11/01/15 Stop Date: 11/01/15 Status: Completed acetaminophen-hydrocodone 325 mg-5 mg oral tablet 1 tab, Route: PO, Drug Form: TAB, Dosing Weight 116.818, kg, Q4H, PRN Pain Score 1-3, Start date: 11/01/15 17:25:00 CDT, Duration: 30 day, Stop date: 12/01/15 1 7:24:00 CDT Notes: (Same as: Fountain 325/5) Do not exceed 4gm/day of acetaminophen. Start Date: 11/01/15 Stop Date: 11/03/15 Status: Discontinued ANES acetaminophen 1,000 mg, Route: PO, Drug form: TAB, ONCE, Dosing Weight 116.818, kg, PRN Pain S core 1-3, Start date: 11/01/15 17:41:00 CDT, Duration: 1 doses or times, Stop da te: Limited # of times Start Date: 11/01/15 Stop Date: 11/01/15 Status: Discontinued ANES fentaNYL 50 microgram, Route: IVP, Q5Min, Dosing Weight 116.818, kg, PRN Pain Score 7-10, Start date: 11/01/15 17:41:00 CDT, Duration: 2 doses or times, Stop date: Limit ed # of times Start Date: 11/01/15 Stop Date: 11/01/15 Status: Discontinued ANES flumazenil 0.2 mg, Route: IVP, PRN, Dosing Weight 116.818, kg, PRN Benzodiazepine Reversal, Initial dose, Start date: 11/01/15 17:41:00 CDT, Duration: 30 day, Stop date: 0 12/01/15 17:40:00 CDT Start Date: 11/01/15 Stop Date: 11/01/15 Status: Discontinued ANES HYDROmorphone 0.5 mg, Route: IVP, Q5Min, Dosing Weight 116.818, kg, PRN Pain Score 7-10, Start date: 11/01/15 17:41:00 CDT, Duration: 4 doses or times, Stop date: Limited # of times Start Date: 11/01/15 Stop Date: 11/01/15 Status: Discontinued ANES meperidine 12.5 mg, Route: IVP, Q30Min, Dosing Weight 116.818, kg, PRN Other -See Comment, For shivering, Start date: 11/01/15 17:41:00 CDT, Duration: 2 doses or times, St op date: Limited # of times Start Date: 11/01/15 Stop Date: 11/01/15 Status: Discontinued ANES naloxone 0.4 mg, Route: IVP, Q2MIN, Dosing Weight 116.818, kg, PRN Narcotic Reversal, Sta rt date: 11/01/15 17:41:00 CDT, Duration: 8 doses or times, Stop date: Limited # of times Start Date: 11/01/15 Stop Date: 11/01/15 Status: Discontinued ANES ondansetron 4 mg, Route: IVP, ONCE, Dosing Weight 116.818, kg, PRN Nausea & Vomiting, Start date: 11/01/15 17:41:00 CDT Start Date: 11/01/15 Stop Date: 11/01/15 Status: Discontinued ANES oxyCODONE 10 mg, Route: PO, Drug form: TAB, Q4H, Dosing Weight 116.818, kg, PRN Pain Score 7-10, Start date: 11/01/15 17:41:00 CDT, Duration: 30 day, Stop date: 12/01/15 17:40:00 CDT Start Date: 11/01/15 Stop Date: 11/01/15 Status: Discontinued ceFAZolin (SCIP) + sodium chloride 0.9% INJ 100 mL 1 gm, Route: IVPB, Q8H, Dosing Weight 116.818, kg, Start date: 11/02/15 0:00:00 CDT, Duration: 1 doses or times, Stop date: 11/02/15 0:00:00 CDT Notes: (Same As: David Gloria) MEDICATION WASTE Product Size: 1000 mgP roduct Wasted: ___ mg Start Date: 11/02/15 Stop Date: 11/02/15 Status: Completed cefOXitin (ANES) Route: IV, Drug form: INJ, ONCE, Stop date: 11/01/15 16:38:00 CDT Start Date: 11/01/15 Stop Date: 11/01/15 Status: Completed cefOXitin + sodium chloride 0.9% INJ 100 mL 2 gm, Route: IVPB, ONCALL, Dosing Weight 116.818, kg, Start date: 11/01/15 15:00 :00 CDT, Duration: 30 day, Stop date: 12/01/15 14:59:00 CDT Notes: (Same As: Mefoxin) MEDICATION WASTE Product Size: 2000 mgProduct Wasted: ___ mg Start Date: 11/01/15 Stop Date: 11/03/15 Status: Discontinued Dilaudid 0.5 mg, 0.5 mL, Route: IVP, Drug form: INJ, Q3H, Dosing Weight 108.182, kg, PRN Pain Score 7-10, Start date: 11/01/15 12:38:00 CDT, Duration: 30 day, Stop date: 12/01/15 12:37:00 CDT Start Date: 11/01/15 Stop Date: 11/03/15 Status: Discontinued famotidine 20 mg, 1 tab, Route: PO, Drug form: TAB, Q12H, Dosing Weight 116.818, kg, Start date: 11/01/15 21:00:00 CDT, Duration: 30 day, Stop date: 12/01/15 9:00:00 CDT Notes: (Same as: Pepcid) Start Date: 11/01/15 Stop Date: 11/03/15 Status: Discontinued fentaNYL (ANES) Route: IV, Drug form: INJ, ONCE, Stop date: 11/01/15 16:38:00 CDT Start Date: 11/01/15 Stop Date: 11/01/15 Status: Completed Flomax 0.4 mg, 1 cap, Route: PO, Drug form: CAP, After Dinner, Dosing Weight 116.818, k g, Start date: 11/02/15 17:00:00 CDT, Duration: 30 day, Stop date: 12/01/15 17:0 0:00 CDT Notes: (Same As: Flomax) "Do Not Crush" Start Date: 11/02/15 Stop Date: 11/03/15 Status: Discontinued glycopyrrolate (ANES) Route: IV, Drug form: INJ, ONCE, Stop date: 11/01/15 17:27:00 CDT Start Date: 11/01/15 Stop Date: 11/01/15 Status: Completed hydromorphone (ANES) Route: IV, Drug form: INJ, ONCE, Stop date: 11/01/15 17:27:00 CDT Start Date: 11/01/15 Stop Date: 11/01/15 Status: Completed Lactated Ringers Injection IV 1000 mL 1,000 mL, Rate: 25 ml/hr, Infuse over: 40 hr, Route: IV, Dosing Weight 116.818 k g, Total Volume: 1,000, Start date: 11/01/15 15:40:00 CDT, Duration: 30 day, Sto p date: 12/01/15 15:39:00 CDT Start Date: 11/01/15 Stop Date: 11/01/15 Status: Discontinued lidocaine (ANES) Route: IV, Drug form: INJ, ONCE, Stop date: 11/01/15 16:38:00 CDT Start Date: 11/01/15 Stop Date: 11/01/15 Status: Completed LR 1000 mL INJ (ANES) Route: IV, Total Volume: 1,000, Start date: 11/01/15 15:48:00 CDT, Stop date: 16:48:00 CDT Start Date: 11/01/15 Stop Date: 11/01/15 Status: Completed midazolam (ANES) Route: IV, Drug form: SOLN, ONCE, Stop date: 11/01/15 16:38:00 CDT Start Date: 11/01/15 Stop Date: 11/01/15 Status: Completed morphine Sulfate 2 mg, 1 mL, Route: IVP, Drug form: INJ, Q3H, Dosing Weight 116.818, kg, PRN Pain Score 4-6, Start date: 11/01/15 17:25:00 CDT, Duration: 30 day, Stop date: 11/08 06/22 17:24:00 CDT Notes: (Same as:MORPhine Sulfate) Start Date: 11/01/15 Stop Date: 11/03/15 Status: Discontinued neostigmine (ANES) Route: IV, Drug form: INJ, ONCE, Stop date: 11/01/15 17:27:00 CDT Start Date: 11/01/15 Stop Date: 11/01/15 Status: Completed Fountain 5/325 oral tablet 1 tab, Route: PO, Drug Form: TAB, Dosing Weight 116.818, kg, Q6H, PRN Pain Score 7-10, Start date: 11/03/15 13:45:00 CDT, Duration: 30 day, Stop date: 12/03/15 13:44:00 CDT Notes: (Same as: Fountain 325/5) Do not exceed 4gm/day of acetaminophen. Start Date: 11/03/15 Stop Date: 11/03/15 Status: Discontinued Fountain 5/325 oral tablet 1 tab, PO, Q6H, PRN Pain Score 7-10, 0 Refill(s) Start Date: 11/01/15 Stop Date: 11/03/15 Status: Discontinued Fountain 5/325 oral tablet See Instructions, take 1-2 tabls every 4 to 6 hours as needed for pain, # 30 tab , 0 Refill(s) Start Date: 11/03/15 Stop Date: 12/04/15 Status: Ordered Ofirmev 1,000 mg, 100 mL, Route: IV, Drug form: INJ, Q6H, Dosing Weight 116.818, kg, for > or=50 kg, Start date: 11/01/15 18:00:00 CDT, Duration: 1 day, Stop date: 11/02/15 12:00:00 CDT Notes: Infuse over 15 minutesDo not exceed 4gm/day of acetaminophen MEDICAT ION WASTE Product Size: 1000 mgProduct Wasted: ___ mg Start Date: 11/01/15 Stop Date: 11/02/15 Status: Completed ondansetron 4 mg, 2 mL, Route: IVP, Drug form: INJ, Q6H, Dosing Weight 116.818, kg, PRN Naus ea & Vomiting, Start date: 11/01/15 17:25:00 CDT, Duration: 30 day, Stop date: 12/01/15 17:24:00 CDT Notes: (Same as: Zofran) MEDICATION WASTE Product Size: 4 mgProduct Was mario: ___ mg Start Date: 11/01/15 Stop Date: 11/03/15 Status: Discontinued ondansetron 4 mg, 2 mL, Route: IVP, Drug form: INJ, Q6H, Dosing Weight 108.182, kg, PRN Naus ea & Vomiting, Start date: 11/01/15 12:38:00 CDT, Duration: 30 day, Stop date: 12/01/15 12:37:00 CDT Notes: (Same as: Zofran) MEDICATION WASTE Product Size: 4 mgProduct Was mario: ___ mg Start Date: 11/01/15 Stop Date: 11/01/15 Status: Discontinued ondansetron (ANES) Route: IV, Drug form: INJ, ONCE, Stop date: 11/01/15 16:38:00 CDT Start Date: 11/01/15 Stop Date: 11/01/15 Status: Completed pneumococcal 23-valent vaccine 0.5 mL, Route: IM, Drug Form: INJ, Daily, Start date: 11/02/15 9:00:00 CDT, Dura tion: 1 doses or times, Stop date: 11/02/15 9:00:00 CDT Notes: (Same as: Pneumovax 23) Refrigerate Start Date: 11/02/15 Stop Date: 11/02/15 Status: Completed propofol (ANES) Route: IV, Drug form: INJ, ONCE, Stop date: 11/01/15 16:38:00 CDT Start Date: 11/01/15 Stop Date: 11/01/15 Status: Completed rocuronium (ANES) Route: IV, Drug form: INJ, ONCE, Stop date: 11/01/15 16:38:00 CDT Start Date: 11/01/15 Stop Date: 11/01/15 Status: Completed Saline Flush 0.9% 10 ml, Route: IVP, Drug Form: INJ, Dosing Weight 108.182, kg, PRN, PRN Line Flus h, Start date: 11/01/15 12:38:00 CDT, Duration: 30 day, Stop date: 12/01/15 12:3 7:00 CDT Notes: Same as: BD Posiflush Sterile Start Date: 11/01/15 Stop Date: 11/03/15 Status: Discontinued sodium chloride 0.9% 1000 ml INJ 1,000 mL 1,000 mL, Rate: 125 ml/hr, Infuse over: 8 hr, Route: IV, Dosing Weight 108.182 k g, Total Volume: 1,000, Start date: 11/01/15 12:38:00 CDT, Duration: 30 day, Sto p date: 12/01/15 12:37:00 CDT Start Date: 11/01/15 Stop Date: 11/02/15 Status: Discontinued Results ELECTROLYTES Most recent to 1 2 oldest [Reference Range]: Sodium Lvl [135-145 139 mEq/L 139 mEq/L mEq/L] (11/02/15 3:31 AM) (11/01/15 3:03 PM) Potassium Lvl 4.0 mEq/L 4.1 mEq/L [3.5-5.1 mEq/L] (11/02/15 3:31 AM) (11/01/15 3:03 PM) Chloride Lvl [95-109 106 mEq/L 104 mEq/L mEq/L] (11/02/15 3:31 AM) (11/01/15 3:03 PM) CO2 [24-32 mEq/L] 27 mEq/L 25 mEq/L (11/02/15 3:31 AM) (11/01/15 3:03 PM) AGAP [10.0-20.0 10.0 mEq/L 14.1 mEq/L mEq/L] (11/02/15 3:31 AM) (11/01/15 3:03 PM) CHEM PANEL Most recent to 1 2 oldest [Reference Range]: Creatinine Lvl 0.97 mg/dL 0.94 mg/dL [0.50-1.40 mg/dL] (11/02/15 3:31 AM) (11/01/15 3:03 PM) eGFR 102 mL/min/1.73m2 1 105 mL/min/1.73m2 2 *NA* *NA* (11/02/15 3:31 AM) (11/01/15 3:03 PM) BUN [7-22 mg/dL] 8 mg/dL 10 mg/dL (11/02/15 3:31 AM) (11/01/15 3:03 PM) B/C Ratio [6-25] 8 11 (11/02/15 3:31 AM) (11/01/15 3:03 PM) Glucose Lvl [70-99 79 mg/dL 81 mg/dL mg/dL] (11/02/15 3:31 AM) (11/01/15 3:03 PM) Total Protein 6.7 g/dL 6.7 g/dL [6.4-8.4 g/dL] (11/02/15 3:31 AM) (11/01/15 3:03 PM) Albumin Lvl [3.5-5.0 3.6 g/dL 3.9 g/dL g/dL] (11/02/15 3:31 AM) (11/01/15 3:03 PM) Globulin [2.7-4.2 3.1 g/dL 2.8 g/dL g/dL] (11/02/15 3:31 AM) (11/01/15 3:03 PM) A/G Ratio [0.7-1.6] 1.2 1.4 (11/02/15 3:31 AM) (11/01/15 3:03 PM) Calcium Lvl 8.2 mg/dL 8.1 mg/dL [8.5-10.5 mg/dL] *LOW* *LOW* (11/02/15 3:31 AM) (11/01/15 3:03 PM) Phosphorus [2.5-4.5 3.2 mg/dL mg/dL] (11/01/15 3:03 PM) Magnesium Lvl 1.9 mg/dL [1.8-2.4 mg/dL] (11/01/15 3:03 PM) ALT [0-65 unit/L] 46 unit/L 52 unit/L (11/02/15 3:31 AM) (11/01/15 3:03 PM) AST [0-37 unit/L] 24 unit/L 25 unit/L (11/02/15 3:31 AM) (11/01/15 3:03 PM) Alk Phos [39-136 95 unit/L 94 unit/L unit/L] (11/02/15 3:31 AM) (11/01/15 3:03 PM) Bili Total [0.2-1.3 0.6 mg/dL 0.4 mg/dL mg/dL] (11/02/15 3:31 AM) (11/01/15 3:03 PM) Lipase Lvl [73-393 78 unit/L unit/L] (11/01/15 3:03 PM) 1Result Comment: The eGFR is calculated using the [...] from the National Kidney Disease Education Program ( NKDEP) which additionally recommends that when the eGFR is used in patients with extremes of body mass index for purposes of drug dosing, the eGFR should be mul tiplied by the estimated BMI. 2Result Comment: The eGFR is calculated using the [...] from the National Kidney Disease Education Program ( NKDEP) which additionally recommends that when the eGFR is used in patients with extremes of body mass index for purposes of drug dosing, the eGFR should be mul tiplied by the estimated BMI. HEMATOLOGY Most recent to 1 2 oldest [Reference Range]: WBC [3.7-10.4 K/CMM] 5.1 K/CMM 4.6 K/CMM (11/02/15 3:31 AM) (11/01/15 3:03 PM) RBC [4.70-6.10 5.33 M/CMM 5.33 M/CMM M/CMM] (11/02/15 3:31 AM) (11/01/15 3:03 PM) Hgb [14.0-18.0 g/dL] 15.1 g/dL 15.0 g/dL (11/02/15 3:31 AM) (11/01/15 3:03 PM) Hct [42.0-54.0 %] 44.3 % 43.6 % (11/02/15 3:31 AM) (11/01/15 3:03 PM) MCV [80.0-94.0 fL] 83.0 fL 81.9 fL (11/02/15 3:31 AM) (11/01/15 3:03 PM) MCH [27.0-31.0 pg] 28.4 pg 28.2 pg (11/02/15 3:31 AM) (11/01/15 3:03 PM) MCHC [32.0-36.0 34.2 g/dL 34.5 g/dL g/dL] (11/02/15 3:31 AM) (11/01/15 3:03 PM) RDW [11.5-14.5 %] 13.3 % 13.5 % (11/02/15 3:31 AM) (11/01/15 3:03 PM) Platelet [133-450 118 K/CMM 131 K/CMM K/CMM] *LOW* *LOW* (11/02/15 3:31 AM) (11/01/15 3:03 PM) MPV [7.4-10.4 fL] 8.2 fL 8.1 fL (11/02/15 3:31 AM) (11/01/15 3:03 PM) Segs [45.0-75.0 %] 72.4 % 74.3 % (11/02/15 3:31 AM) (11/01/15 3:03 PM) Lymphocytes 18.3 % 18.6 % [20.0-40.0 %] *LOW* *LOW* (11/02/15 3:31 AM) (11/01/15 3:03 PM) Monocytes [2.0-12.0 6.8 % 5.2 % %] (11/02/15 3:31 AM) (11/01/15 3:03 PM) Eosinophils [0.0-4.0 1.9 % 1.3 % %] (11/02/15 3:31 AM) (11/01/15 3:03 PM) Basophils [0.0-1.0 0.6 % 0.6 % %] (11/02/15 3:31 AM) (11/01/15 3:03 PM) Segs-Bands # 3.7 K/CMM 3.4 K/CMM [1.5-8.1 K/CMM] (11/02/15 3:31 AM) (11/01/15 3:03 PM) Lymphocytes # 0.9 K/CMM 0.8 K/CMM [1.0-5.5 K/CMM] *LOW* *LOW* (11/02/15 3:31 AM) (11/01/15 3:03 PM) Monocytes # [0.0-0.8 0.3 K/CMM 0.2 K/CMM K/CMM] (11/02/15 3:31 AM) (11/01/15 3:03 PM) Eosinophils # 0.1 K/CMM 0.1 K/CMM [0.0-0.5 K/CMM] (11/02/15 3:31 AM) (11/01/15 3:03 PM) Immunizations Given and Recorded Vaccine Date Status Refusal Reason pneumococcal 23-valent vaccine 11/02/15 Given Procedures Procedure Date Related Diagnosis Body Site Ankle fusion Repair of recurrent umbilical hernia Social History Social History Type Response Alcohol Current, Type Beer. Frequency: 1-2 times per month. Smoking Status Current every day smoker; Type: Cigarettes; Tobacco use per day: 1; Previous treatment: None; Ready to change: No; Concerns about tobacco use in household: No; Exposed at work; Cigarette Smoking Last 365 Days Yes; Reg Smoking Cessation Counseling No Assessment and Plan Extracted from: Title: [facility] Author: Braden Laguerre MD Date: 11/03/15 Hospitalist Service Discharge Summary [facility] Hospitalist Service Discharge Summary PATIENT NAME: ERUM DE LEON ATTENDING: BRADEN COLE JR, MD ADMISSION DATE: 11/01/2015 DISCHARGE DATE: 11/03/2015 DISCHARGE DIAGNOSIS: Incarcerated ventral hernia Tobacco abuse Urinary Retention CONSULTING PHYSICIANS/SERVICES: General Surgery, Dr. Peewee Coon DISCHARGE CONDITION: Fair HISTORY OF PRESENT ILLNESS: This is a pleasant 35 year old man with insignificant past medical history but past surgical history of possible volvulus as an with surgical correction with resultant ventral hernias requiring surgical correction on three separate occasions, who presents to the hospital as a transfer from an outside facility due to acute onset of abdominal pain. The patient reports that at 3:15 AM on the morning of admission, he had sudden onset abdominal pain. He is unable to characterize the pain, but reports it starts just to the right of his umbilicus (10 o'clock position, radiates towards his left abdomen and downwards, as well as towards his left arm. He denies inciting trauma, rather he bent over forward with the pain starting thereafter. He reports the pain being a 10/10 in severity. He reports trying hydrocodone without relief. Deep breathing and walking worsens his pain. He reports no nausea, vomiting, diarrhea or constipation. His last bowel movement was yesterday evening following work and was not abnormal. He denies pain with urination, changes in urination including blood in his urine. His birthday was yesterday where he celebrated with boneless wings from [employer]. Due to unrelenting pain, he sought further medical care at a stand alone emergency center. He underwent radiographic imaging and was noted to have a small ventral hernia with upstream evidence concerning for an early small bowel obstruction. For this reason, a request for admission was made. HOSPITAL COURSE: The patient was evaluated by general surgery and the source of his abdominal pain was felt to be an incarcerated ventral hernia. The patient underwent open surgical correction of the ventral hernia and had some relief of his pain thereafter. He was able to tolerate a clear liquid diet, then full liquid diet. He had no evidence of obstipation at time of discharge. His hospitalization was complicated by acute urinary retention likely due to pain medication. A vasques was briefly placed however after starting on flomax, a voiding trial was successful. I saw and examined the patient on day of discharge. The patient was discharged in fair condition, with appropriate followup and appropriate medications. DISCHARGE INSTRUCTIONS: Notify Physician if any of the Following Occur : Bleeding, Fever, Nausea, Pain, Shortness of breath, Signs of infection, Swelling DISCHARGE DIET: Home Diet : Diet Liquid DISCHARGE MEDICATIONS: PLEASE SEE HMR FOR DETAILS PERTAINING TO DISCHARGE MEDICATIONS DISCHARGE FOLLOWUP: Follow-Up With Provider : physician Provider #1 : Peewee Coon MD Follow-Up Call : Call for appointment Follow-up with Provider within : 1 Week Reason : Post Op Visit A total of 32 minutes was spent planning discharge which included bedside counseling. Extracted from: Title: Clinical Document Author: Peewee Coon MD Date: 11/03/15 Progress Note - Daily [facility] Completed: Oct, 11:55 by Peewee Coon MD RM: 325 - 1P, SE [id number] (: 1980) M Attending: Braden Laguerre MDPhone: Service: Internal Medicine Reason for Admission: INCARCERATED HERNIA Working DRG: Hernia procedures except inguinal & femoral w/o CC/GROUP HOME Code status: Full Code [Ordered]Current diet: Isolation: None Documented Allergies: NKDA SUBJECTIVE Doing well. pain controlled, no nausea, vomiting. passing some flatus, ambulating OBJECTIVE nad abdomen soft, nt incision - some seorus drainage. no erythema (no lab data in past 24 hours) Vasques still necessary (Yes/No): Line still necessary (Yes/No): VitalsTmp(F)[id number] 11/02 08:1298.658571/86-------- 11/02 07:25 1897 21% 11/01 23:3798.112808/74--96--- 11/01 20:20 1898 21% 11/01 19:3698.557265/698997--- 24 Hr Tmax: 98.7F (37.06c) at 11/01 23:37Vital Signs are the last 5 in the past 48 hours. DateWt(kg)Wt(lb)Ht(cm)Ht(in)Method 10/31 (initial)116.82 257.00Measured .96 74.00Estimated I&ORecordInOutBal 10/2723hr Tot 35 400 -365 10/2623hr Tot 103 5025-8268 Medications (9) Active Scheduled Meds (2): 11/01/15 famotidine 20 mg PO Q12H 11/02/15 tamsulosin (Flomax) 0.4 mg PO After Dinner Unscheduled Meds (1): 11/01/15 cefOXitin + sodium chloride 0.9% INJ 100 mL 2 gm IVPB ONCALL 200 ml/hr PRN Meds (5): 11/01/15 acetaminophen-hydrocodone (acetaminophen-hydrocodone 325 mg-5 mg oral tablet) 1 tab PO Q4H 11/01/15 hydromorphone (Dilaudid) 0.5 mg IVP Q3H 11/01/15 morphine Sulfate 2 mg IVP Q3H 11/01/15 ondansetron 4 mg IVP Q6H 11/01/15 sodium chloride (Saline Flush 0.9%) 10 ml IVP PRN One Time Meds (1): 11/02/15 (Completed) pneumococcal 23-valent vaccine (Pneumovax 23) 0.5 mL IM ONCE Continuous Infusions: None ASSESSMENT & EXAM doing well PLAN & TREATMENT d/c vasques diet as tolerated ok to d/c home later today from my standpoint Rx fo rnorco in chart follow-up with me in 1 week Extracted from: Title: Clinical Document Author: Peewee Coon MD Date: 11/01/15 OPERATIVE REPORT DATE OF PROCEDURE:11/01/15 Pre-Operative Diagnosis : incarcerated ventral hernia Post Operative Diagnosis : Same as Pre-Operative Diagnosis Procedure Performed : Open repair of incarcerated incisional hernia with 6cm bard circular mesh Scar excision of 10x3cm scar Additional Physician/Assistants : Primary Surgeon - Peewee Coon MD Certified Registered Nurse Quilter Fixer - Cody Alberto CRNA Anesthesiologist of Record - Anjali Mandel MD Specimens Removed : None Wound Class : Clean Findings of the Procedure : Bowel reduced on attempting to isolate the sac, no evidence of bloody fluid within the sac to suggest bowel ischemia or strangulation. 3cm defect. Dense scar tissue from prior repair. Mesh placed preperitoneal and fascia defect closed over mesh. EBL: 30mls DETAILS OF PROCEDURE: Patient was identified and brought to the operating room by anesthesia. SCDs were placed for DVt prophylaxis. Ancef was given 30 minutes prior to incision. A surgical pause was performed. An elliptical incision was made around the prior scar which was then completely excised. This measured 10x3cm. I then attempted to isolated the hernia sac. This was difficult due to the dense scar tissue from the prior infection. During this process the herniated bowel reduced easily with minimal pressure. There was no evidence of blood fluid within the hernia to suggest bowel ischemia. I then isolated the sac completely from the surrounding fascia. I was able to maintain a preperitoneal plane of dissection and was able to invaginate the herniated preperitoneal fat and sac back below the fascia. I then developed the pre peritoneal space circumferentially around the hernia defect which measured 3cm. Once I had 2cm cleared circumferentially, I placed a 6cm circular bard dual sided mesh into the preperitoneal space and secured it with interrupted 0- ethibond suture. I closed the fascial defect over the mesh with those sutures as well. I then developed subcutaneous flaps to be able to close the soft tissue defect from the scar excision. I then closed the wound in layers with interrupted 2-0 vicryl sutures to minimize the space over the repair. The skin was then reapproximated with marshal and a couple of 2-0 nylon sutures were placed where there was increased tension on the wound. A dry dressing was applied. The patient was extubated and transferred to the PACU in stable condition. There were no complications. All counts were correct at the end of the case. Extracted from: Title: Clinical Document Author: Peewee Coon MD Date: 11/01/15 General Surgery Consult Note Reason for consult: abdominal pain HPI: 35 y.o with long standing incisional hernia from prior hernia repair that had infected mesh which required explantation and open wound presents with 24hr of increased pain nausea at hernia site. Pain radiates around entire abdomen. He went to neighbors ER and CT there which I reviewed demostrated an incisional hernia containing bowel loop that is incarcerated with proximal SB dilatation resulting in obstruction. A/P: 35 y.o with incarcerated incisional hernia containing small bowel with evidence of obstruction. Discussed lap vs open repair. He doesn't want to laparoscopic repair so will proceed with open. Discussed higher risk of infection, bleeding, as well recurrence. Will plan on placement of biologic mesh vs suture repair depending on status of bowel and size of defect. Npo, IVFS Past Medical/Surgical history History of abdominal hernia Repair of recurrent umbilical hernia Ankle fusion Abdominal surgery as a kid Family History Brother: Leukemia Grandparent: High blood pressure; Type 2 diabetes mellitus Social History Alcohol Details: Current, Type Beer. Frequency: 1-2 times per month. Tobacco Details: Use: Current every day smoker. Type: Cigarettes. 1 per day. Previous treatment: None. Ready to change: No. Household tobacco concerns: No. Tobacco smoke exposure: Exposed at work. Did the Patient Smoke Cigarettes Anytime During the Last 365 Days? Yes. Cessation Counseling Provided? No. 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 cefOXitin: 2 gm, IVPB, ONCALL. hydromorphone: 0.5 mg, 0.5 mL, IVP, Q3H, PRN: Pain Score 7-10. ondansetron: 4 mg, 2 mL, IVP, Q6H, PRN: Nausea & Vomiting. pneumococcal 23-valent vaccine: 0.5 mL, IM, Daily. sodium chloride: 10 ml, IVP, PRN, PRN: Line Flush. sodium chloride 0.9% 1000 ml INJ 1,000 mL: 125 ml/hr, IV, Stop: 12/01/15 12:37:00 CDT. Documented acetaminophen-hydrocodone: 1 tab, PO, Q6H, PRN: Pain Score 7-10, 0 Refill(s). Medications Inactivated in the Last 72 Hours hydromorphone: 0.5 mg, 0.5 mL, PYXIS, ONCE. Physical Exam General: _NAD HEENT: _Anicteric Cardiovascular: _RRR Respiratory: _Respirations unlabored Abdomen: _soft, non-distended, superior to the umbilicus is a hernia that is very firm and tendern and non-reducible. Right transverse scar. Well healed scar over prior incision. No overlying skin changes Extremities: _warm, no edema Integumentary: _no rash Neurologic: _alert, oriented x3 VitalsTmp(F)[id number] 10/31 12:[id number]--- 24 Hr Tmax: 97.6F (36.44c) at 10/31 12:23Vital Signs are the last 5 in the past 48 hours. (no lab data in past 24 hours) Extracted from: Title: Hospitalist History and Author: Braden Laguerre MD Date: 11/01/15 Physical Assessment/Plan 1.Early small bowel obstruction, likely in part due to adhesions The patient has radiographic evidence concerning for a small bowel obstruction. Possible incarceration of bowel as well. To this end, will keep npo, provide IVF, correct electrolyte abnormalities if they exist, hold off on bowel decompression until seen by general surgery. The patient had a enlarged spleen on a prior imaging study and he has a brother with leukemia. Will draw blood tests as this could be a leukemia as patient's brother has had one as well. 2.Acute abdominal pain Will treat with IV morphine, ofirmev 3.Tobacco abuse Counselled 4.History of ventral hernia General surgery consultation. Orders: Ofirmev, 1,000 mg, 100 mL, Route: IV, Drug form: INJ, Q6H, Dosing Weight 116.818, kg, for > or=50 kg, Start date: 11/01/15 18:00:00 CDT, Duration: 1 day, Stop date: 11/02/15 12:00:00 CDT Dilaudid, 0.5 mg, 0.5 mL, Route: IVP, Drug form: INJ, Q3H, Dosing Weight 108.182, kg, PRN Pain Score 7-10, Start date: 11/01/15 12:38:00 CDT, Duration: 30 day, Stop date: 12/01/15 12:37:00 CDT ondansetron, 4 mg, 2 mL, Route: IVP, Drug form: INJ, Q6H, Dosing Weight 108.182, kg, PRN Nausea & Vomiting, Start date: 11/01/15 12:38:00 CDT, Duration: 30 day, Stop date: 12/01/15 12:37:00 CDT Saline Flush 0.9%, 10 ml, Route: IVP, Drug Form: INJ, Dosing Weight 108.182, kg, PRN, PRN Line Flush, Start date: 11/01/15 12:38:00 CDT, Duration: 30 day, Stop date: 12/01/15 12:37:00 CDT sodium chloride 0.9% 1000 ml INJ 1,000 mL, 1,000 mL, Rate: 125 ml/hr, Infuse over: 8 hr, Route: IV, Dosing Weight 108.182 kg, Total Volume: 1,000, Start date: 11/01/15 12:38:00 CDT, Duration: 30 day, Stop date: 12/01/15 12:37:00 CDT Bedding Order Up ad curly Ambulation CDM Admission Acute Care Direct Admit CDM Common IV Orders Complete Blood Count w/ Diff and Platelet Comprehensive Metabolic Panel Diet NPO Urine Drug Screen (7 Drugs) Intake and Output Magnesium Level Phosphorus Level Physician Consult AC4 Pulse Oximetry Spot Check by Nurse Resuscitation (Code) Status Vital Signs Prophylaxis Ambulation encouraged. Disposition Following general surgery evaluation. [facility] Providers Hospitalist Service is primary. Call [phone] with questions.
[2018-07-30] MEDS ORDERED: LIDOCAINE HCL 1% LOCAL INJ 20 ML VIAL ONE (23:59)
== END 2018-07-31 00:47 | disposition home or self-care (01) ==
LOC: FSED 23:39
DX: S61.011A Laceration without foreign body of right thumb without damage to nail, initial encounter (principal); W25.XXXA Contact with sharp glass, initial encounter; Y92.008 Other place in unspecified non-institutional (private) residence as the place of occurrence of the external cause; F17.210 Nicotine dependence, cigarettes, uncomplicated
CPT/HCPCS: 12001; 99283; J2001

== ENCOUNTER 2018-08-07 21:30 | Emergency (ER) | payer OTHER ==
[~2018-08-07] VITALS: Ht 190.5 cm; Wt 108.9 kg
--- OUTSIDE RECORDS SUMMARY | 2018-08-07 21:34 | XMS REPORT | Clinical Summary ---
Author Author [facility] Organization [facility] Address Unknown Phone Unavailable Care Team Providers Care Courtesy Driver Name Role Phone Drake Pastrana MD PCP [...] Not on file Results Not on fileafter 08/06/2017 Insurance Payer Benefit Subscriber ID Type Phone Address Plan / Group [employer] - [employer] CARE [employer] xxxxxxxxxxx HMO/POS HMO/POS/OP EN ACCESS Advance Directives For more information, please contact: [facility] [address] [place] [address] Date Inactivated Comments Code Status Date Activated 04/21/2017 10:05 PM Full Code 04/21/2017 1:51 PM This code status was determined by: Patient
[2018-08-07] MEDS ORDERED: IOPAMIDOL 370 MG/ML 200 ML INFUS..BTL INJ ONE (22:26)
[2018-08-07] MEDS ORDERED: SODIUM CHLORIDE 0.9% 50ML 50 ML ONE (22:26)
--- NOTE | 2018-08-07 23:07 | Diagnostic Imaging Report ---
Hand Complete CPT code: 19229 Indication:Laceration to thumb (glass) Technique: Three views of the right hand obtained Comparison: None. Findings: Distal radius and ulna appear intact. Mild negative ulnar variance. Carpal bones appear generally well aligned. The digits are intact and normally aligned. No radiopaque foreign body in the soft tissues. IMPRESSION: No evidence for displaced fracture or current dislocation of the hand. No radiopaque foreign bodies. Signed by: Dr. Shirley Quintero MD on 08/07/2018 11:04 PM
--- NOTE | 2018-08-07 23:14 | Diagnostic Imaging Report ---
CT Abdomen And Pelvis with Intravenous Contrast INDICATION: Left lower quadrant pain ^[id number] ^[id number] TECHNIQUE: Thin collimation axial images obtained from the diaphragm to the level of the pubic symphysis following the uneventful administration of 100 cc of low osmolar, nonionic intravenous contrast. Dose reduction techniques used: Automated exposure control, adjustment of the mAs and/or kVp according to patient size, standardized low-dose protocol, and/or iterative reconstruction technique. RADIATION DOSE: Total DLP: 796.13 mGy*cm Estimated effective dose: (DLP x 0.015 x size factor) mSv CTDIvol has been reviewed. It is below the limits set by the Radiation Protocol Committee (RPC). COMPARISON: None. ABDOMEN FINDINGS: Lung Bases: Clear. The visualized portions of the mediastinum are normal.. Liver: Normal attenuation. No evidence for mass. Gallbladder: Absent. No biliary ductal dilatation. Pancreas: Normal attenuation without mass or ductal dilatation. Spleen: Measures 17.6 cm. No mass. Adrenal Glands: No evidence for mass. Kidneys: Right: Normal enhancement. No soft tissue mass. No hydronephrosis. Left: Normal enhancement. No soft tissue mass. No hydronephrosis. Lymph Nodes: No enlarged abdominal or periaortic lymph nodes. Aorta: Normal in diameter. There is a retroaortic left renal vein. The portal vein measures 17 mm in diameter and is widely patent. PELVIS FINDINGS: Bowel: Stomach: Normal. Small Bowel: Normal in diameter with normal wall thickness. Large Bowel: Diverticulosis coli particularly of the descending colon. No associated inflammation. No large bowel dilatation. Appendix: Not visualized. Bladder: Under distended but otherwise normal. Other pelvic organs appear normal.. Peritoneum/retroperitoneum: No free fluid or fluid collection. Bones: Unremarkable for age. Soft tissues: Ventral abdominal wall mesh superior to the umbilicus. No evidence of hernia. IMPRESSION: 1. Diverticulosis coli. No evidence for bowel obstruction or inflammation. Nonvisualization of the appendix, if present. 2. Splenomegaly and enlarged portal vein suggestive of portal hypertension. No CT evidence of cirrhosis. No ascites. No abdominopelvic lymphadenopathy. Signed by: Dr. Shirley Quintero MD on 08/07/2018 11:10 PM
== END 2018-08-07 23:34 | disposition home or self-care (01) ==
LOC: FSED 21:30
DX: R10.12 Left upper quadrant pain (principal); R10.32 Left lower quadrant pain; M79.644 Pain in right finger(s); F17.210 Nicotine dependence, cigarettes, uncomplicated
CPT/HCPCS: 73130; 74177; 99283; Q9967

== ENCOUNTER 2018-08-26 13:23 | Emergency (ER) | payer OTHER ==
[~2018-08-26] VITALS: Ht 190.5 cm; Wt 111.1 kg
--- OUTSIDE RECORDS SUMMARY | 2018-08-26 13:27 | XMS REPORT | Clinical Summary ---
Author Author [facility] Organization [facility] Address Unknown Phone Unavailable Care Team Providers Care Wire Tinner Name Role Phone Drake Pastrana MD PCP [...] Not on file Results Not on fileafter 08/25/2017 Insurance Payer Benefit Subscriber ID Type Phone Address Plan / Group [employer] - [place] CARE [employer] xxxxxxxxxxx HMO/POS HMO/POS/OP EN ACCESS Advance Directives For more information, please contact: [facility] [address] [place] [address] Date Inactivated Comments Code Status Date Activated 04/21/2017 10:05 PM Full Code 04/21/2017 1:51 PM This code status was determined by: Patient
[2018-08-26] MEDS ORDERED: IOPAMIDOL 370 MG/ML 200 ML INFUS..BTL INJ ONE (14:09)
[2018-08-26] MEDS ORDERED: SODIUM CHLORIDE 0.9% 50ML 50 ML ONE (14:09)
[2018-08-26] MEDS ORDERED: KETOROLAC TROMETHAMINE 30 MG/ML VIAL IV STA (14:18)
[2018-08-26] MEDS ORDERED: KETOROLAC TROMETHAMINE 30 MG/ML VIAL ONE (14:45)
--- NOTE | 2018-08-26 15:00 | Diagnostic Imaging Report ---
EXAMINATION: CT of the abdomen and pelvis with contrast. TECHNIQUE: Spiral CT images of the abdomen and pelvis were performed from the lung bases to the lesser trochanters after the intravenous administration of 100 cc Isovue-370. Coronal and sagittal reformatted images were obtained. COMPARISON: 08/07/2018 CLINICAL HISTORY:Left-sided abdominal pain DISCUSSION: ABDOMEN/PELVIS: LOWER THORAX:Unremarkable. HEPATOBILIARY: No focal hepatic lesions. No intra-or extrahepatic biliary ductal dilation. The gallbladder has been removed. SPLEEN: Mild splenomegaly. Small splenule adjacent to the hilum. PANCREAS: No focal masses or ductal dilatation. ADRENALS: No adrenal nodules. KIDNEYS/URETERS: No hydronephrosis, stones, or solid mass lesions. PELVIC ORGANS/BLADDER: The urinary bladder is poorly distended but otherwise unremarkable. PERITONEUM/RETROPERITONEUM: No free air or fluid. LYMPH NODES: No pelvic sidewall, retroperitoneal, or mesenteric lymphadenopathy. VESSELS: Abdominal aorta, major branch vessels, and iliac arterial systems are well-visualized and patent. Retroaortic left renal vein area prominent splenic and portal vein and noted. GI TRACT: The large bowel is again notable for innumerable sigmoid diverticula without wall thickening or adjacent inflammatory change. The adjacent ascending and transverse colon is collapsed and poorly evaluated. The appendix has presumably been removed with right lower quadrant marshal. No small bowel dilatation to suggest obstruction. BONES AND SOFT TISSUE: Postsurgical changes of the anterior abdominal wall presumably related to hernia repair. Otherwise no focal soft tissue abnormalities. No osseous destructive lesions. IMPRESSION: No acute intra-abdominal or pelvic CT abnormalities. Sigmoid and descending colon diverticulosis without findings of diverticulitis. As before, nonspecific splenomegaly and prominence of the portal venous system. Postsurgical changes of ventral hernia repair. Signed by: Dr. Dennys Lara M.D. on 08/26/2018 2:56 PM
[2018-08-26] MEDS ORDERED: DICYCLOMINE HCL 20 MG TAB PO ONE (15:30)
[2018-08-26] MEDS ORDERED: DICYCLOMINE HCL 10 MG CAP ONE (15:34)
[2018-08-26] MEDS ORDERED: DICYCLOMINE HCL10 MG PO (15:38)
[2018-08-26 15:48] VITALS: BP 114/68
== END 2018-08-26 15:57 | disposition home or self-care (01) ==
LOC: FSED 13:23
DX: R10.12 Left upper quadrant pain (principal); R10.32 Left lower quadrant pain; K64.8 Other hemorrhoids; F17.210 Nicotine dependence, cigarettes, uncomplicated
CPT/HCPCS: 74177; 80053; 81003; 85025; 99284; J1885; Q9967

== ENCOUNTER 2018-10-17 21:06 | Emergency (ER) | payer OTHER ==
[~2018-10-17] VITALS: Ht 190.5 cm; Wt 111.1 kg
[~2018-10-17 21:06] MED LIST changes: +DICYCLOMINE HCL10 MG PO
--- OUTSIDE RECORDS SUMMARY | 2018-10-17 21:10 | XMS REPORT | Clinical Summary ---
Author Author [facility]Data [facility] Address Unknown Phone Unavailable Care Team Providers Care Stem Cutter Name Role Phone Drake Pastrana MD PCP Allergies No Known Allergies Medications No known medications Active Problems Not on file Encounters Care Team Description Date Type Specialty Matt Rossi MD Splenomegaly (Primary Dx) 09/03/2018 Emergency Emergency Medicine 09/03/2018 Travel after 10/16/2017 Social History Date Tobacco Use Types Packs/Day [...] travel history available. Last Filed Vital Signs Time Taken Vital Sign Reading 09/03/2018 7:32 PM CDT Blood Pressure 134/87 09/03/2018 7:32 PM CDT Pulse 64 09/03/2018 7:32 PM CDT Temperature 36.8 C (98.2 F) 09/03/2018 7:32 PM CDT Respiratory Rate 20 09/03/2018 7:32 PM CDT Oxygen Saturation 98% - Inhaled Oxygen - Concentration 09/03/2018 7:32 PM CDT Weight 108.9 kg (240 lb) 09/03/2018 7:32 PM CDT Height 190.5 cm (6' 3") 09/03/2018 7:32 PM CDT Body Mass Index 30 Plan of Treatment Not on file Procedures Comments Procedure Name Priority Date/Time Associated Diagnosis CT/CTA ABDOMEN & PELVIS STAT 09/03/2018 9:28 PM CDT CBC W/PLT COUNT & AUTO STAT 09/03/2018 DIFFERENTIAL 8:33 PM CDT MAGNESIUM STAT 09/03/2018 8:33 PM CDT PT/APTT STAT 09/03/2018 8:33 PM CDT COMPREHENSIVE METABOLIC STAT 09/03/2018 PANEL 8:33 PM CDT CBC W/PLT COUNT & AUTO STAT 09/03/2018 DIFFERENTIAL 8:33 PM CDT after 10/16/2017 Results * CT/CTA abdomen & pelvis (09/03/2018 9:28 PM CDT) Specimen Narrative Performed At [facility] [employer] EXAMINATION: CTA, abdomen and pelvis INDICATION: Abdominal pain. Evaluate for aortic injury. Abnormal outside ultrasound which was concerning for an abdominal aortic dissection. TECHNIQUE: Axial noncontrast tomographic images were acquired through the abdomen and pelvis to evaluate for acute aortic mural hemorrhage. Following the administration of IV contrast, axial tomographic images were acquired during the early arterial phase of imaging through the abdomen and pelvis. Postprocessing was performed and coronal / sagittal reformatted images were created and reviewed. 3-dimensional rotational angiographic models of the aorta were also created and reviewed. The exam was performed according to our departmental dose optimization program which includes automated exposure control, adjustment of the mA and/or kV according to patient's size and/or use of iterative reconstructive technique. FINDINGS: Outside ultrasound currently unavailable. Nonvascular: Lung bases are clear. The heart size is normal. No evidence of a pericardial or pleural effusion. The distal esophagus is decompressed. The gallbladder is absent. No significant fluid within the gallbladder fossa or pathologic biliary dilatation. The liver is grossly unremarkable. The spleen is enlarged measuring 17 cm. Heterogeneous enhancement of the spleen is likely related to the early arterial phase of imaging. The pancreas is unremarkable. No evidence of a worrisome adrenal mass. No evidence of renal obstruction, nephrolithiasis or perinephric edema. The ureters are decompressed. Small calcifications are noted in the pelvis which are favored to reflect vascular phleboliths. Evaluation for a nonobstructing distal ureteral calculus however is limited by the absence of enteric contrast. Postoperative changes are noted involving the anterior abdominal wall. There is a small associated adipose tissue containing midline hernia. No evidence of bowel or abnormal fluid collection. The stomach is grossly unremarkable. The loops of small bowel are relatively normal in caliber. The appendix is not identified with certainty. A surgical clip is noted just dorsal to the cecum-terminal ileum. A moderate to large volume of inspissated stool is noted in the colon extending from the cecum to the rectum. Punctate gas collections along the colon may reflect haustral folds. However superimposed diverticulosis should also be considered. No definite evidence of associated diverticulitis. The bladder is unremarkable. The seminal vesicles are mildly prominent, nonspecific. The prostate gland is borderline enlarged for age. No significant intra-abdominal or pelvic free fluid. No definite evidence of an acute osseous abnormality. Vascular: The abdominal aorta is normal in course and caliber. No evidence of an aortic dissection, acute aortic mural hemorrhage, dissection or penetrating ulcer. Contrast opacifies the celiac, superior mesenteric and inferior mesenteric arteries without focal luminal narrowing, atherosclerotic plaque burden or thrombus. On the coronal reformatted images there appear to be 2 right main renal arteries. Alternatively there may be a very early bifurcation of the right main renal artery. The left main renal arteries widely patent. There is a retroaortic left renal vein, normal anatomic variant. The common iliac, internal iliac, external iliac and visualized femoral arteries are patent. Evaluation of the venous structures is limited by the early timing of the contrast bolus. IMPRESSION: No evidence of an acute abdominal aortic / arterial process. Specifically, no evidence of an abdominal aortic dissection. Splenomegaly. Constipation. Results discussed with Dr. Rossi. Signed: Gama Hugo MD Report Verified Date/Time:09/03/2018 22:33:52 Reading Location: [address] Reading Room Procedure Note Interface, External Ris In - 09/03/2018 10:36 PM CDT FINAL REPORT EXAMINATION: CTA, abdomen and pelvis INDICATION: Abdominal pain. Evaluate for aortic injury. Abnormal outside ultrasound which was concerning for an abdominal aortic dissection. TECHNIQUE: Axial noncontrast tomographic images were acquired through the abdomen and pelvis to evaluate for acute aortic mural hemorrhage. Following the administration of IV contrast, axial tomographic images were acquired during the early arterial phase of imaging through the abdomen and pelvis. Postprocessing was performed and coronal / sagittal reformatted images were created and reviewed. 3-dimensional rotational angiographic models of the aorta were also created and reviewed. The exam was performed according to our departmental dose optimization program which includes automated exposure control, adjustment of the mA and/or kV according to patient's size and/or use of iterative reconstructive technique. FINDINGS: Outside ultrasound currently unavailable. Nonvascular: Lung bases are clear. The heart size is normal. No evidence of a pericardial or pleural effusion. The distal esophagus is decompressed. The gallbladder is absent. No significant fluid within the gallbladder fossa or pathologic biliary dilatation. The liver is grossly unremarkable. The spleen is enlarged measuring 17 cm. Heterogeneous enhancement of the spleen is likely related to the early arterial phase of imaging. The pancreas is unremarkable. No evidence of a worrisome adrenal mass. No evidence of renal obstruction, nephrolithiasis or perinephric edema. The ureters are decompressed. Small calcifications are noted in the pelvis which are favored to reflect vascular phleboliths. Evaluation for a nonobstructing distal ureteral calculus however is limited by the absence of enteric contrast. Postoperative changes are noted involving the anterior abdominal wall. There is a small associated adipose tissue containing midline hernia. No evidence of bowel or abnormal fluid collection. The stomach is grossly unremarkable. The loops of small bowel are relatively normal in caliber. The appendix is not identified with certainty. A surgical clip is noted just dorsal to the cecum-terminal ileum. A moderate to large volume of inspissated stool is noted in the colon extending from the cecum to the rectum. Punctate gas collections along the colon may reflect haustral folds. However superimposed diverticulosis should also be considered. No definite evidence of associated diverticulitis. The bladder is unremarkable. The seminal vesicles are mildly prominent, nonspecific. The prostate gland is borderline enlarged for age. No significant intra-abdominal or pelvic free fluid. No definite evidence of an acute osseous abnormality. Vascular: The abdominal aorta is normal in course and caliber. No evidence of an aortic dissection, acute aortic mural hemorrhage, dissection or penetrating ulcer. Contrast opacifies the celiac, superior mesenteric and inferior mesenteric arteries without focal luminal narrowing, atherosclerotic plaque burden or thrombus. On the coronal reformatted images there appear to be 2 right main renal arteries. Alternatively there may be a very early bifurcation of the right main renal artery. The left main renal arteries widely patent. There is a retroaortic left renal vein, normal anatomic variant. The common iliac, internal iliac, external iliac and visualized femoral arteries are patent. Evaluation of the venous structures is limited by the early timing of the contrast bolus. IMPRESSION: No evidence of an acute abdominal aortic / arterial process. Specifically, no evidence of an abdominal aortic dissection. Splenomegaly. Constipation. Results discussed with Dr. Rossi. Signed: Gama Hugo MD Report Verified Date/Time: 09/03/2018 22:33:52 Reading Location: [address] Reading Room Performing Organization Address [facility] Phone Number GE RIS * PT/aPTT (09/03/2018 8:33 PM CDT) Protime 13.3 11.9 - 14.2 seconds [facility] INR 1.1 <=5.9 [facility] PTT 31.5 22.5 - 36.0 seconds [facility] Specimen Blood Narrative Performed At Effective 08/04/2018: PT Reference Range Change [facility] New: 11.9-14.2Previous: 11.7-14.7 [facility] RECOMMENDED COUMADIN/WARFARIN INR THERAPY RANGES STANDARD DOSE: 2.0-3.0Includes: PROPHYLAXIS for venous thrombosis, systemic embolization; TREATMENT for venous thrombosis and/or pulmonary embolus. HIGH RISK: Target INR is 2.5-3.5 for patients wiht mechanical heart valves. Performing Organization Address City/[facility] Phone Number [facility] [address] [place] [address] MEDICAL CENTER * CBC with platelet count + automated diff (09/03/2018 8:33 PM CDT) WBC 6.0 3.5 - 10.5 K/L [facility] RBC 5.30 4.63 - 6.08 M/L [facility] Hemoglobin 15.4 13.7 - 17.5 GM/DL [facility] Hematocrit 45.0 40.1 - 51.0 % [facility] MCV 84.9 79.0 - 92.2 fL [facility] MCH 29.1 25.7 - 32.2 pg [facility] MCHC 34.2 32.3 - 36.5 GM/DL [facility] RDW 12.6 11.6 - 14.4 % [facility] Platelets 184 150 - 450 K/CU MM [facility] MPV 9.6 9.4 - 12.4 fL [facility] nRBC 0 0 - 0 /100 WBC [facility] % Neutros 63 % [facility] % Lymphs 26 % [facility] % Monos 6 % [facility] % Eos 3 % [facility] % Baso 1 % [facility] # Neutros 3.78 1.78 - 5.38 K/L [facility] # Lymphs 1.55 1.32 - 3.57 K/L [facility] # Monos 0.37 0.30 - 0.82 K/L [facility] # Eos 0.20 0.04 - 0.54 K/L [facility] # Baso 0.05 0.01 - 0.08 K/L [facility] Immature 0 0 - 1 % [facility] Granulocytes-Relative [facility] Specimen Blood Performing Organization Address City/State/Zipcode Phone Number [facility] [address] [place] [address] MEDICAL ODD * Magnesium (09/03/2018 8:33 PM CDT) Magnesium 2.2 1.6 - 2.6 mg/dL [facility] Specimen Blood Performing Organization Address City/State/Zipcode Phone Number [facility] [id number] [facility] * Comprehensive metabolic panel (09/03/2018 8:33 PM CDT) Protein, Total 8.3 6.0 - 8.3 gm/dL [facility] Albumin 4.8 3.5 - 5.0 g/dL [facility] Alkaline Phosphatase 107 40 - 150 U/L [facility] Total Bilirubin 0.5 0.2 - 1.2 mg/dL [facility] Sodium 139 136 - 145 meq/L [facility] Potassium 4.3 3.5 - 5.1 meq/L [facility] Chloride 104 98 - 107 meq/L [facility] CO2 27 22 - 29 meq/L [facility] BUN 16 7 - 21 mg/dL [facility] Creatinine 1.23 0.57 - 1.25 mg/dL [facility] Glucose 83 70 - 105 mg/dL [facility] Calcium 9.9 8.4 - 10.2 mg/dL [facility] AST 31 5 - 34 U/L [facility] ALT 44 6 - 55 U/L [facility] EGFR 67Comment: ESTIMATED GFR IS mL/min/1.[address] [facility] NOT ACCURATE CREATININE [facility] CLEARANCE IN PREDICTING GLOMERULAR FILTRATION RATE. ESTIMATED GFR IS NOT APPLICABLE FOR DIALYSIS PATIENTS. Specimen Blood Performing Organization Address City/State/Zipcode Phone Number [address] [address] [facility] after 10/16/2017 Insurance Payer Benefit Subscriber ID Type Phone Address Plan / Group [employer] - MGD CARE [employer] xxxxxxxxxxx HMO/POS HMO/POS/OP EN ACCESS [facility]/POS CARE POS SELECT CHOICE Advance Directives For more information, please contact: [facility] [address] [place] [address] Date Inactivated Comments Code Status Date Activated 04/21/2017 10:05 PM Full Code 04/21/2017 1:51 PM This code status was determined by: Patient
--- OUTSIDE RECORDS SUMMARY | 2018-10-17 21:10 | XMS REPORT | Continuity of Care Document ---
Author Author [facility] Organization [facility] Address Unknown Phone Unavailable Care Team Providers Care Project Reservoir Engineer Name Role Phone Newsy Unavailable Unavailable Problems Problem Status Onset Date Classification Date Reported Comments Source EARLY SBO Active 11/01/2015 [facility] INCARCERATED HERNIA Active 11/01/2015 [facility] ABD PAIN; HERNIA Active 12/27/2013 [facility] Pain Active Problem 11/06/2015 [facility] Surgery Active Problem 11/06/2015 [facility] Urinary retention Active Problem 11/06/2015 [facility] Ventral hernia Active Problem 11/06/2015 [facility] History of abdominal hernia Resolved Problem 11/06/2015 [facility] BI INGUINAL HERNIA, W OBST, W/O GANGRENE Active [facility] Medications Medication Details Route Status Patient Instructions Ordering Provider Order Date Source Acetaminophen 325 MG / Hydrocodone Bitartrate 5 MG Oral Tablet [Kaibeto 5/325] See Instructions, take 1-2 tabls every 4 to 6 hours as needed for pain, # 30 tab, 0 Refill(s) Active 11/03/2015 [facility] Acetaminophen 325 MG / Hydrocodone Bitartrate 5 MG Oral Tablet [Kaibeto 5/325] 1 tab, Route: PO, Drug Form: TAB, Dosing Weight 116.818, kg, Q6H, PRN Pain Score 7-10, Start date: 11/03/15 13:45:00 CDT, Duration: 30 day, Stop date: 12/03/15 13:44:00 CDTNotes: (Same as: Kaibeto 325/5) Do not exceed 4gm/day of acetaminophen. Inactive 11/03/2015 [facility] Flomax 0.4 mg, 1 cap, Route: PO, Drug form: CAP, After Dinner, Dosing Weight 116.818, kg, Start date: 11/02/15 17:00:00 CDT, Duration: 30 day, Stop date: 12/01/15 17:00:00 CDTNotes: (Same As: Flomax) "Do Not Crush" No Longer Active 11/02/2015 [facility] pneumococcal capsular polysaccharide type 1 vaccine / pneumococcal capsular polysaccharide type 10A vaccine / pneumococcal capsular polysaccharide type 11A vaccine / pneumococcal capsular polysaccharide type 12F vaccine / pneumococcal capsular polysacchar 0.5 mL, Route: IM, Drug Form: INJ, Daily, Start date: 11/02/15 9:00:00 CDT, Duration: 1 doses or times, Stop date: 11/02/15 9:00:00 CDTNotes: (Same as: Pneumovax 23) Refrigerate Inactive 11/02/2015 [facility] ceFAZolin (SCIP) + sodium chloride 0.9% INJ 100 mL 1 gm, Route: IVPB, Q8H, Dosing Weight 116.818, kg, Start date: 11/02/15 0:00:00 CDT, Duration: 1 doses or times, Stop date: 11/02/15 0:00:00 CDTNotes: (Same As: David Gloria) MEDICATION WASTE Product Size: 1000 mg Product Wasted: ___ mg Inactive 11/02/2015 [facility] Famotidine 20 mg, 1 tab, Route: PO, Drug form: TAB, Q12H, Dosing Weight 116.818, kg, Start date: 11/01/15 21:00:00 CDT, Duration: 30 day, Stop date: 12/01/15 9:00:00 CDTNotes: (Same as: Pepcid) No Longer Active 11/02/2015 [facility] Ofirmev 1,000 mg, 100 mL, Route: IV, Drug form: INJ, Q6H, Dosing Weight 116.818, kg, for > or=50 kg, Start date: 11/01/15 18:00:00 CDT, Duration: 1 day, Stop date: 11/02/15 12:00:00 CDTNotes: Infuse over 15 minutes Do not exceed 4gm/day of acetaminophen MEDICATION WASTE Product Size: 1000 mg Product Wasted: ___ mg No Longer Active 11/01/2015 [facility] Ondansetron 4 mg, Route: IVP, ONCE, Dosing Weight 116.818, kg, PRN Nausea & Vomiting, Start date: 11/01/15 17:41:00 CDT Inactive 11/01/2015 [facility] Acetaminophen 1,000 mg, Route: PO, Drug form: TAB, ONCE, Dosing Weight 116.818, kg, PRN Pain Score 1-3, Start date: 11/01/15 17:41:00 CDT, Duration: 1 doses or times, Stop date: Limited # of times Inactive 11/01/2015 [facility] Flumazenil 0.2 mg, Route: IVP, PRN, Dosing Weight 116.818, kg, PRN Benzodiazepine Reversal, Initial dose, Start date: 11/01/15 17:41:00 CDT, Duration: 30 day, Stop date: 12/01/15 17:40:00 CDT Inactive 11/01/2015 [facility] Naloxone 0.4 mg, Route: IVP, Q2MIN, Dosing Weight 116.818, kg, PRN Narcotic Reversal, Start date: 11/01/15 17:41:00 CDT, Duration: 8 doses or times, Stop date: Limited # of times Inactive 11/01/2015 [facility] Fentanyl 50 microgram, Route: IVP, Q5Min, Dosing Weight 116.818, kg, PRN Pain Score 7-10, Start date: 11/01/15 17:41:00 CDT, Duration: 2 doses or times, Stop date: Limited # of times Inactive 11/01/2015 [facility] Hydromorphone 0.5 mg, Route: IVP, Q5Min, Dosing Weight 116.818, kg, PRN Pain Score 7-10, Start date: 11/01/15 17:41:00 CDT, Duration: 4 doses or times, Stop date: Limited # of times Inactive 11/01/2015 [facility] Oxycodone 10 mg, Route: PO, Drug form: TAB, Q4H, Dosing Weight 116.818, kg, PRN Pain Score 7-10, Start date: 11/01/15 17:41:00 CDT, Duration: 30 day, Stop date: 12/01/15 17:40:00 CDT Inactive 11/01/2015 [facility] Meperidine 12.5 mg, Route: IVP, Q30Min, Dosing Weight 116.818, kg, PRN Other -See Comment, For shivering, Start date: 11/01/15 17:41:00 CDT, Duration: 2 doses or times, Stop date: Limited # of times Inactive 11/01/2015 [facility] hydromorphone (ANES) Route: IV, Drug form: INJ, ONCE, Stop date: 11/01/15 17:27:00 CDT Inactive 11/01/2015 [facility] neostigmine (ANES) Route: IV, Drug form: INJ, ONCE, Stop date: 11/01/15 17:27:00 CDT Inactive 11/01/2015 [facility] glycopyrrolate (ANES) Route: IV, Drug form: INJ, ONCE, Stop date: 11/01/15 17:27:00 CDT Inactive 11/01/2015 [facility] Ondansetron 4 mg, 2 mL, Route: IVP, Drug form: INJ, Q6H, Dosing Weight 116.818, kg, PRN Nausea & Vomiting, Start date: 11/01/15 17:25:00 CDT, Duration: 30 day, Stop date: 12/01/15 17:24:00 CDTNotes: (Same as: Martin) MEDICATION WASTE Product Size: 4 mg Product Wasted: ___ mg No Longer Active 11/01/2015 [facility] Morphine 2 mg, 1 mL, Route: IVP, Drug form: INJ, Q3H, Dosing Weight 116.818, kg, PRN Pain Score 4-6, Start date: 11/01/15 17:25:00 CDT, Duration: 30 day, Stop date: 12/01/15 17:24:00 CDTNotes: (Same as:MORPhine Sulfate) No Longer Active 11/01/2015 [facility] Acetaminophen 325 MG / Hydrocodone Bitartrate 5 MG Oral Tablet 1 tab, Route: PO, Drug Form: TAB, Dosing Weight 116.818, kg, Q4H, PRN Pain Score 1-3, Start date: 11/01/15 17:25:00 CDT, Duration: 30 day, Stop date: 12/01/15 17:24:00 CDTNotes: (Same as: Kaibeto 325/5) Do not exceed 4gm/day of acetaminophen. No Longer Active 11/01/2015 [facility] lidocaine (ANES) Route: IV, Drug form: INJ, ONCE, Stop date: 11/01/15 16:38:00 CDT Inactive 11/01/2015 [facility] midazolam (ANES) Route: IV, Drug form: SOLN, ONCE, Stop date: 11/01/15 16:38:00 CDT Inactive 11/01/2015 [facility] ondansetron (ANES) Route: IV, Drug form: INJ, ONCE, Stop date: 11/01/15 16:38:00 CDT Inactive 11/01/2015 [facility] acetaminophen (ANES) Route: IV, Drug form: INJ, ONCE, Stop date: 11/01/15 16:38:00 CDT Inactive 11/01/2015 [facility] rocuronium (ANES) Route: IV, Drug form: INJ, ONCE, Stop date: 11/01/15 16:38:00 CDT Inactive 11/01/2015 [facility] cefOXitin (ANES) Route: IV, Drug form: INJ, ONCE, Stop date: 11/01/15 16:38:00 CDT Inactive 11/01/2015 [facility] fentaNYL (ANES) Route: IV, Drug form: INJ, ONCE, Stop date: 11/01/15 16:38:00 CDT Inactive 11/01/2015 [facility] propofol (ANES) Route: IV, Drug form: INJ, ONCE, Stop date: 11/01/15 16:38:00 CDT Inactive 11/01/2015 [facility] LR 1000 mL INJ (ANES) Route: IV, Total Volume: 1,000, Start date: 11/01/15 15:48:00 CDT, Stop date: 11/01/15 16:48:00 CDT Inactive 11/01/2015 [facility] Calcium Chloride 0.0014 MEQ/ML / Potassium Chloride 0.004 MEQ/ML / Sodium Chloride 0.103 MEQ/ML / Sodium Lactate 0.028 MEQ/ML Injectable Solution 1,000 mL, Rate: 25 ml/hr, Infuse over: 40 hr, Route: IV, Dosing Weight 116.818 kg, Total Volume: 1,000, Start date: 11/01/15 15:40:00 CDT, Duration: 30 day, Stop date: 12/01/15 15:39:00 CDT Inactive 11/01/2015 [facility] Cefoxitin 2 gm, Route: IVPB, ONCALL, Dosing Weight 116.818, kg, Start date: 11/01/15 15:00:00 CDT, Duration: 30 day, Stop date: 12/01/15 14:59:00 CDTNotes: (Same As: Mefoxin) MEDICATION WASTE Product Size: 2000 mg Product Wasted: ___ mg No Longer Active 11/01/2015 [facility] Acetaminophen 325 MG / Hydrocodone Bitartrate 5 MG Oral Tablet [Kaibeto 5/325] 1 tab, PO, Q6H, PRN Pain Score 7-10, 0 Refill(s) No Longer Active 11/01/2015 [facility] Sodium Chloride 0.154 MEQ/ML Injectable Solution 1,000 mL, Rate: 125 ml/hr, Infuse over: 8 hr, Route: IV, Dosing Weight 108.182 kg, Total Volume: 1,000, Start date: 11/01/15 12:38:00 CDT, Duration: 30 day, Stop date: 12/01/15 12:37:00 CDT No Longer Active 11/01/2015 [facility] Ondansetron 4 mg, 2 mL, Route: IVP, Drug form: INJ, Q6H, Dosing Weight 108.182, kg, PRN Nausea & Vomiting, Start date: 11/01/15 12:38:00 CDT, Duration: 30 day, Stop date: 12/01/15 12:37:00 CDTNotes: (Same as: Zofran) MEDICATION WASTE Product Size: 4 mg Product Wasted: ___ mg Inactive 11/01/2015 [facility] Saline Flush 0.9% 10 ml, Route: IVP, Drug Form: INJ, Dosing Weight 108.182, kg, PRN, PRN Line Flush, Start date: 11/01/15 12:38:00 CDT, Duration: 30 day, Stop date: 12/01/15 12:37:00 CDTNotes: Same as: BD Posiflush Sterile No Longer Active 11/01/2015 [facility] Dilaudid 0.5 mg, 0.5 mL, Route: IVP, Drug form: INJ, Q3H, Dosing Weight 108.182, kg, PRN Pain Score 7-10, Start date: 11/01/15 12:38:00 CDT, Duration: 30 day, Stop date: 12/01/15 12:37:00 CDT No Longer Active 11/01/2015 [facility] Allergies, Adverse Reactions, Alerts No Known Medication Allergies Immunizations Immunization Date Given Site Status Last Updated Comments Source pneumococcal 23-valent vaccine 11/02/2015 Left Deltoid completed [facility] Results Order Name Results Value Reference Range Date Interpretation Comments Source CHEM PANEL eGFR 102 11/02/2015 Result Comment: The eGFR is calculated [...] should be multiplied by the estimated BMI. [facility] CHEM PANEL Calcium Lvl 8.2 8.5 - 10.5 11/02/2015 [facility] CHEM PANEL CO2 27 24 - 32 11/02/2015 [facility] CHEM PANEL Potassium Lvl 4.0 3.5 - 5.1 11/02/2015 [facility] CHEM PANEL Sodium Lvl 139 135 - 145 11/02/2015 [facility] CHEM PANEL Chloride Lvl 106 95 - 109 11/02/2015 [facility] CHEM PANEL Alk Phos 95 39 - 136 11/02/2015 [facility] CHEM PANEL AST 24 0 - 37 11/02/2015 [facility] CHEM PANEL ALT 46 0 - 65 11/02/2015 [facility] CHEM PANEL Albumin Lvl 3.6 3.5 - 5.0 11/02/2015 [facility] CHEM PANEL Total Protein 6.7 6.4 - 8.4 11/02/2015 [facility] CHEM PANEL Bili Total 0.6 0.2 - 1.3 11/02/2015 [facility] CHEM PANEL Glucose Lvl 79 70 - 99 11/02/2015 [facility] CHEM PANEL Creatinine Lvl 0.97 0.50 - 1.40 11/02/2015 [facility] CHEM PANEL BUN 8 7 - 22 11/02/2015 [facility] CHEM PANEL A/G Ratio 1.2 0.7 - 1.6 11/02/2015 [facility] CHEM PANEL Globulin 3.1 2.7 - 4.2 11/02/2015 [facility] CHEM PANEL B/C Ratio 8 6 - 25 11/02/2015 [facility] CHEM PANEL AGAP 10.0 10.0 - 20.0 11/02/2015 [facility] HEMATOLOGY MCHC 34.2 32.0 - 36.0 11/02/2015 [facility] HEMATOLOGY RDW 13.3 11.5 - 14.5 11/02/2015 [facility] HEMATOLOGY Platelet 118 133 - 450 11/02/2015 [facility] HEMATOLOGY MPV 8.2 7.4 - 10.4 11/02/2015 [facility] HEMATOLOGY WBC 5.1 3.7 - 10.4 11/02/2015 [facility] HEMATOLOGY MCV 83.0 80.0 - 94.0 11/02/2015 [facility] HEMATOLOGY MCH 28.4 27.0 - 31.0 11/02/2015 [facility] HEMATOLOGY Hgb 15.1 14.0 - 18.0 11/02/2015 [facility] HEMATOLOGY RBC 5.33 4.70 - 6.10 11/02/2015 [facility] HEMATOLOGY Hct 44.3 42.0 - 54.0 11/02/2015 [facility] HEMATOLOGY Monocytes 6.8 2.0 - 12.0 11/02/2015 [facility] HEMATOLOGY Basophils 0.6 0.0 - 1.0 11/02/2015 [facility] HEMATOLOGY Segs-Bands # 3.7 1.5 - 8.1 11/02/2015 [facility] HEMATOLOGY Lymphocytes # 0.9 1.0 - 5.5 11/02/2015 [facility] HEMATOLOGY Eosinophils 1.9 0.0 - 4.0 11/02/2015 [facility] HEMATOLOGY Segs 72.4 45.0 - 75.0 11/02/2015 [facility] HEMATOLOGY Lymphocytes 18.3 20.0 - 40.0 11/02/2015 [facility] HEMATOLOGY Monocytes # 0.3 0.0 - 0.8 11/02/2015 [facility] HEMATOLOGY Eosinophils # 0.1 0.0 - 0.5 11/02/2015 [facility] CHEM PANEL Phosphorus 3.2 2.5 - 4.5 11/01/2015 [facility] CHEM PANEL Magnesium Lvl 1.9 1.8 - 2.4 11/01/2015 [facility] CHEM PANEL eGFR 105 11/01/2015 Result Comment: The eGFR is calculated [...] should be multiplied by the estimated BMI. [facility] CHEM PANEL Glucose Lvl 81 70 - 99 11/01/2015 [facility] CHEM PANEL BUN 10 7 - 22 11/01/2015 [facility] CHEM PANEL Creatinine Lvl 0.94 0.50 - 1.40 11/01/2015 [facility] CHEM PANEL Sodium Lvl 139 135 - 145 11/01/2015 [facility] CHEM PANEL Potassium Lvl 4.1 3.5 - 5.1 11/01/2015 [facility] CHEM PANEL Chloride Lvl 104 95 - 109 11/01/2015 [facility] CHEM PANEL CO2 25 24 - 32 11/01/2015 [facility] CHEM PANEL Bili Total 0.4 0.2 - 1.3 11/01/2015 [facility] CHEM PANEL ALT 52 0 - 65 11/01/2015 [facility] CHEM PANEL AST 25 0 - 37 11/01/2015 [facility] CHEM PANEL Alk Phos 94 39 - 136 11/01/2015 [facility] CHEM PANEL Calcium Lvl 8.1 8.5 - 10.5 11/01/2015 [facility] CHEM PANEL Albumin Lvl 3.9 3.5 - 5.0 11/01/2015 [facility] CHEM PANEL Total Protein 6.7 6.4 - 8.4 11/01/2015 [facility] CHEM PANEL A/G Ratio 1.4 0.7 - 1.6 11/01/2015 [facility] CHEM PANEL Globulin 2.8 2.7 - 4.2 11/01/2015 [facility] CHEM PANEL B/C Ratio 11 6 - 25 11/01/2015 [facility] CHEM PANEL AGAP 14.1 10.0 - 20.0 11/01/2015 [facility] CHEM PANEL Lipase Lvl 78 73 - 393 11/01/2015 [facility] HEMATOLOGY Eosinophils 1.3 0.0 - 4.0 11/01/2015 [facility] HEMATOLOGY Monocytes 5.2 2.0 - 12.0 11/01/2015 [facility] Lymphocytes 18.6 20.0 - 40.0 11/01/2015 [facility] HEMATOLOGY Segs 74.3 45.0 - 75.0 11/01/2015 [facility] HEMATOLOGY Eosinophils # 0.1 0.0 - 0.5 11/01/2015 [facility] HEMATOLOGY Monocytes # 0.2 0.0 - 0.8 11/01/2015 [facility] Lymphocytes # 0.8 1.0 - 5.5 11/01/2015 [facility] Segs-Bands # 3.4 1.5 - 8.1 11/01/2015 [facility] Basophils 0.6 0.0 - 1.0 11/01/2015 [facility] MCH 28.2 27.0 - 31.0 11/01/2015 [facility] HEMATOLOGY MCV 81.9 80.0 - 94.0 11/01/2015 [facility] HEMATOLOGY Hct 43.6 42.0 - 54.0 11/01/2015 [facility] Hgb 15.0 14.0 - 18.0 11/01/2015 [facility] RBC 5.33 4.70 - 6.10 11/01/2015 [facility] MPV 8.1 7.4 - 10.4 11/01/2015 [facility] Platelet 131 133 - 450 11/01/2015 [facility] RDW 13.5 11.5 - 14.5 11/01/2015 [facility] MCHC 34.5 32.0 - 36.0 11/01/2015 [facility] WBC 4.6 3.7 - 10.4 11/01/2015 [facility] Pathology Reports No Data Provided for This Section Diagnostic Reports Report Value Date Source Abdomen 2 views DX Patient Name: ERUM DE LEON : 1980; Age: 35 years y/o Male MR: [id number] Study: Abdomen 2 views DX 11/02/2015 8:29 [...] than obstruction. Progress KUBs are recommended. SL: [id number] 11/02/2015 [facility] Abdomen/Pelvis w IV contrast CT EXAMINATION: CT of the abdomen and pelvis with contrast HISTORY: abd pain/hernia COMPARISON: None. DLP: 2069.77 TECHNIQUE: Multiple transaxial images through the abdomen [...] cm craniocaudally. 2. Splenomegaly. SL: 16 12/29/2013 [facility] Consultation Notes No Data Provided for This Section Discharge Summaries No Data Provided for This Section History and Physicals No Data Provided for This Section Vital Signs Vital Sign Value Date Comments Source Respitory Rate 16 11/03/2015 [facility] Systolic (mm Hg) 136 11/03/2015 [facility] Diastolic (mm Hg) 83 11/03/2015 [facility] Heart Rate 70 11/03/2015 [facility] Temperature Oral (F) 98.8 F 11/03/2015 [facility] Heart Rate 71 11/03/2015 [facility] Systolic (mm Hg) 139 11/03/2015 [facility] Diastolic (mm Hg) 86 11/03/2015 [facility] Temperature Oral (F) 98.6 F 11/03/2015 [facility] Respitory Rate 18 11/03/2015 [facility] Heart Rate 79 11/03/2015 [facility] Systolic (mm Hg) 128 11/03/2015 [facility] Diastolic (mm Hg) 74 11/03/2015 [facility] Temperature Oral (F) 98.7 F 11/03/2015 [facility] Respitory Rate 18 11/03/2015 [facility] Height 187.96 cm 11/01/2015 [facility] Weight 116.818 11/01/2015 [facility] BMI Calculated 33.07 11/01/2015 [facility] Encounters Location Location Details Encounter Type Encounter Number Reason For Visit Attending Provider ADM Date DC Date Status Source [facility] Outpatient [id number] Peewee Coon 12/29/2013 12/30/2013 [facility] Inpatient [id number] Braden Cole Jr 11/02/2015 11/03/2015 [facility] Procedures Procedure Code Date Perfomer Comments Source Ankle fusion [id number] [facility] Repair of recurrent umbilical hernia [id number] [facility] Assessment and Plan Assessment and Plan Date Source Extracted from:Title: [facility] Hospitalist Service Discharge Summary Author: Braden Laguerre MD Date: 11/03/15 [facility] Providers Hospitalist Service Discharge Summary PATIENT NAME: ERUM DE LEON ATTENDING: BRADEN OCLE JR, MD ADMISSION DATE: 11/01/2015 DISCHARGE DATE: [...] where he celebrated with boneless wings from [employer]. Due to unrelenting pain, he sought further [...] : Diet Liquid DISCHARGE MEDICATIONS: PLEASE SEE R FOR DETAILS PERTAINING TO DISCHARGE MEDICATIONS DISCHARGE FOLLOWUP: Follow-Up With Provider : physician Provider #1 : Peewee Coon MD Follow-Up Call : Call for appointment Follow-up with Provider within : 1 Week Reason : Post Op Visit A total of 32 minutes was spent planning discharge which included bedside counseling. Extracted from:Title: Clinical Document Author: Peewee Coon MD Date: 11/03/15 Progress Note - Daily [facility] Completed: Oct, 11:55 by Peewee Coon MD RM: 325 - 1P, SE C3BW DE LEONERUM 35y (: 1980) Joel Attending: Braden Laguerre MD Service: Internal Medicine Reason for Admission: INCARCERATED HERNIA Working DRG: Hernia procedures except inguinal and femoral w/o CC/ALF Code status: Full Code [Ordered] Current diet: Isolation: None Documented Allergies: NKDA SUBJECTIVE Doing well. pain controlled, no nausea, vomiting. passing some flatus, ambulating OBJECTIVE nad abdomen soft, nt incision - some seorus drainage. no erythema (no lab data in past 24 hours) Vasques still necessary (Yes/No): Line still necessary (Yes/No): Vitals Tmp(F) Pulse BP RR SpO2 FIO2 11/02 08:12 98.6 71 139/86 -- --- --- 11/02 07:25 ---- --- ----- 18 97 21% 11/01 23:37 98.7 79 128/74 -- 96 --- 11/01 20:20 ---- --- ----- 18 98 21% 11/01 19:36 98.5 63 135/90 16 98 --- 24 Hr Tmax: 98.7F (37.06c) at 11/01 23:37 Vital Signs are the last 5 in the past 48 hours. Date Wt(kg) Wt(lb) Ht(cm) Ht(in) Method 10/31 (initial) 116.82 257.00 Measured 10/31 187.96 74.00 Estimated I&O Record In Out Bal 11/02 24hr Tot 35 400 -365 11/01 24hr Tot 103 0780 -4197 Medications (9) Active Scheduled Meds (2): 11/01/15 [...] mL IM ONCE Continuous Infusions: None ASSESSMENT and EXAM doing well PLAN and TREATMENT d/c vasques diet as tolerated ok to d/c home later today from my standpoint Rx fo rnorco in chart follow-up with me in 1 week Extracted from:Title: Clinical Document Author: Peewee Coon MD Date: 11/01/15 OPERATIVE REPORT DATE OF PROCEDURE: 11/01/15 Pre-Operative Diagnosis : incarcerated ventral hernia Post Operative Diagnosis : Same as Pre-Operative Diagnosis Procedure Performed : Open repair of incarcerated incisional hernia with 6cm bard circular mesh Scar excision of 10x3cm scar Additional Physician/Assistants : Primary Surgeon - Peewee Coon MD Certified Registered Nurse Metal Machine Operator - Cody Alberto CRNA Anesthesiologist of Record [...] at the end of the case. Extracted from:Title: Clinical Document Author: Peewee Coon MD Date: [...] 365 Days? Yes. Cessation Counseling Provided? No. 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 cefOXitin: 2 gm, IVPB, ONCALL. hydromorphone: 0.5 mg, 0.5 mL, IVP, Q3H, PRN: Pain Score 7-10. ondansetron: 4 mg, 2 mL, IVP, Q6H, PRN: Nausea and Vomiting. pneumococcal 23-valent vaccine: 0.5 mL, IM, [...] Integumentary: _no rash Neurologic: _alert, oriented x3 Vitals Tmp(F) Pulse BP RR SpO2 FIO2 10/31 12:23 97.6 50 138/85 18 99 --- 24 Hr Tmax: 97.6F (36.44c) at 10/31 12:23 Vital Signs are the last 5 in the past 48 hours. (no lab data in past 24 hours) Extracted from:Title: Hospitalist History and Physical Author: Braden Laguerre MD Date: 11/01/15 Assessment/Plan 1.Early small bowel obstruction, likely in [...] Q6H, Dosing Weight 108.182, kg, PRN Nausea and Vomiting, Start date: 11/01/15 12:38:00 CDT, Duration: [...] Ambulation encouraged. Disposition Following general surgery evaluation. [facility] Hospitalist Service is primary. Call [phone] with questions. 11/03/2015 [facility] Plan of Care No Data Provided for This Section Social History Social History Date Source Social History TypeResponse Alcohol Current, Type Beer. Frequency: 1-2 times per month. Smoking Status Current every day smoker; Type: Cigarettes; Tobacco use per day: 1; Previous treatment: None; Ready to change: No; Concerns about tobacco use in household: No; Exposed at work; Cigarette Smoking Last 365 Days Yes; Reg Smoking Cessation Counseling No 11/01/2015 [facility] Family History No Data Provided for This Section Advance Directives No Data Provided for This Section Functional Status No Data Provided for This Section
[2018-10-17 21:38] LABS: BASOPHILS % 0.6 % (0.0-1.0); EOSINOPHILS # (AUTO) 0.1 (0.0-0.4); EOSINOPHILS % 2.7 % (0.0-6.0); HEMATOCRIT 40.2 % (38.2-49.6); HEMOGLOBIN 14.2 g/dL (14.0-18.0); LYMPHOCYTES # (AUTO) 0.9 (1.0-3.2); LYMPHOCYTES % 17.6 % (18.0-39.1); MEAN CORPUSCULAR HEMOGLOBIN 29.8 pg (28-32); MEAN CORPUSCULAR HGB CONC 35.3 g/dL (31-35); MEAN CORPUSCULAR VOLUME 84.5 fL (81-99); MONOCYTES # (AUTO) 0.3 (0.2-0.8); MONOCYTES % 5.9 % (4.4-11.3); NEUTROPHILS # (AUTO) 3.9 (2.1-6.9); NEUTROPHILS % 72.8 % (38.7-80.0); PLATELET COUNT 137 x10e3/uL (140-360); RED BLOOD COUNT 4.76 x10e6/uL (4.3-5.7); RED CELL DISTRIBUTION WIDTH 12.4 % (11.7-14.4)
[2018-10-17 21:40] LABS: BILIRUBIN,URINE NEGATIVE (NEGATIVE); CLARITY,URINE CLEAR (CLEAR); COLOR,URINE YELLOW (YELLOW); KETONES,URINE NEGATIVE (NEGATIVE); LEUKOCYTE ESTERASE ,URINE NEGATIVE (NEGATIVE); NITRITE,URINE NEGATIVE (NEGATIVE); PROTEIN,URINE DIPSTICK NEGATIVE (NEGATIVE); URINE UROBILINOGEN 0.2 mg/dL (0.2 - 1)
[2018-10-17 21:53] LABS: ALANINE AMINOTRANSFERASE 42 IU/L (0-55); ALBUMIN 4.2 g/dL (3.5-5.0); ALBUMIN/GLOBULIN RATIO 1.5 (0.8-2.0); ALKALINE PHOSPHATASE 99 IU/L (40-150); ANION GAP 13.9 mmol/L (8-16); BLOOD UREA NITROGEN 14 mg/dL (7-26); BUN/CREATININE RATIO 15 (6-25); CALCIUM 9.3 mg/dL (8.4-10.2); CARBON DIOXIDE 22 mmol/L (22-29); CHLORIDE 108 mmol/L (98-107); CREATINE KINASE 249 IU/L (30-200); CREATININE, SERUM 0.94 mg/dL (0.72-1.25); EST GLOMERULAR FILTRATION RATE > 60 ML/MIN (60-); GLUCOSE 114 mg/dL (74-118); POTASSIUM 3.9 mmol/L (3.5-5.1); SODIUM 140 mmol/L (136-145)
[2018-10-17 21:55] LABS: AMYLASE 34 U/L (25-125); LIPASE 35 U/L (8-78)
[2018-10-17 21:56] LABS: BACTERIA,URINE RARE /HPF; EPITHELIAL CELLS,URINE RARE /LPF; RBC,URINE 0-5 /HPF (0-5); WBC,URINE (MAN) 0-5 /HPF (0-5)
--- NOTE | 2018-10-17 22:41 | NUR ---
PT PRESSED CALL [facility], REQUESTING PAIN MEDICATIONS, AWARE, NO NEW ORDERS
--- NOTE | 2018-10-17 22:56 | Diagnostic Imaging Report ---
EXAM: ABDOMEN ACUTE SERIES W/PA CXR, DATE: 10/17/2018 9:30 PM INDICATION: Left-sided abdominal pain. COMPARISON: None FINDINGS: LINES/TUBES: None BOWEL PATTERN: No evidence for obstruction. Moderate volume of stool throughout the colon and rectum. SOFT TISSUES: Cholecystectomy clips. LUNG BASES: Not included BONES: No acute findings. IMPRESSION: Findings may reflect constipation the proper clinical setting. Signed by: Dr. Yair Viadl M.D. on 10/17/2018 10:53 PM
== END 2018-10-17 23:10 | disposition home or self-care (01) ==
LOC: ER 21:06
DX: R10.12 Left upper quadrant pain (principal); K59.00 Constipation, unspecified; F17.210 Nicotine dependence, cigarettes, uncomplicated
CPT/HCPCS: 36415; 74022; 80053; 81001; 82150; 82550; 82553; 83690; 84484; 85025; 93005; 99283

== ENCOUNTER 2020-11-01 21:18 | Emergency (ER) | payer BC, OTHER ==
[~2020-11-01] VITALS: Ht 190.5 cm; Wt 114.8 kg
[2020-11-01] MEDS ORDERED: CEPHALEXIN500 MG PO (23:18)
[2020-11-01 23:31] VITALS: BP 121/84
== END 2020-11-01 23:31 | disposition home or self-care (01) ==
LOC: FSED 22:11
DX: T81.30XA Disruption of wound, unspecified, initial encounter (principal); F17.210 Nicotine dependence, cigarettes, uncomplicated
CPT/HCPCS: 99283

== ENCOUNTER 2021-05-10 22:17 | Emergency (ER) | payer SELFPAY ==
[~2021-05-10] VITALS: Ht 190.5 cm; Wt 117.9 kg
[~2021-05-10 22:17] MED LIST changes: +CEPHALEXIN500 MG PO
[2021-05-10] MEDS ORDERED: CIPRO500 MG PO (23:30)
== END 2021-05-10 23:33 | disposition home or self-care (01) ==
LOC: ER 22:28
DX: L08.9 Local infection of the skin and subcutaneous tissue, unspecified (principal); S90.812A Abrasion, left foot, initial encounter
CPT/HCPCS: 99282